=== PATIENT | female | born 2000 | race Caucasian/White ===

== ENCOUNTER 2021-10-15 22:01 | Emergency (ER) | payer OTHER, SELFPAY ==
--- OUTSIDE RECORDS SUMMARY | 2021-10-15 22:07 | XMS REPORT | Continuity of Care Document ---
:2000 Author Organization [facility] t Address [address] [place] [address] Care Team Providers Name Role Phone PCP, DOES NOT HAVE A Primary Care Physician Unavailable BREA GALE Attending Clinician Unavailable Maribel MIGUEL Attending Clinician Unavailable Maribel Miguel DO Attending Clinician Doctor Unassigned, Name Attending Clinician Unavailable Brea Gale MD Attending Clinician Dhara Guadalupe MD Attending Clinician Jaden GIVENS Attending Clinician JADEN Attending Clinician Unavailable Pob, Lab Main Attending Clinician Unavailable Eze VELIZ Attending Clinician Unavailable Ultrasound, Mfm Attending Clinician Unavailable Nayely Muller MD Attending Clinician BREA GALE Admitting Clinician Unavailable Dhara Guadalupe MD Admitting Clinician Brea Gale MD Admitting Clinician Payers Payer Name Policy Type Policy Number Effective Date Expiration Date [facility] [id number] 2019 [facility] MEDICAID 00:00:00 Problems Condition Condition Condition Status Onset Resolution Last Treating Co mments Source Name Details Category Date Date Treatment Clinician Date Liveborn Liveborn Disease Active 2019- Unive rs , of infant, of 4-06 [place] , [place] born in born in [facility] by vaginal by vaginal delivery delivery Gestationa Gestationa Disease Active 2019-0 U nivers l l 4-05 [place] of hypertensi [place] without on without 00 Me dical significan significan Br anch t t proteinuri proteinuri a in third a in third trimester trimester 40 weeks 40 weeks Disease Active 0 Unive rs gestation gestation 4-05 ity of of of 00:00: [place] 00 [facility] Excessive Excessive Disease Active Uni vers weight weight 1-02 ity of gain gain 00:00: [place] during during 00 Medical Bran ch in third in third trimester trimester Morbid Morbid Disease Active Univers obesity obesity 1-02 [place] of with body [place] body [place] mass index mass index 00 Me dical of of Branch 40.0-49.9 40.0-49.9 Excessive Excessive Disease Active Uni vers weight weight 1-02 ity of gain gain 00:00: [place] during during 00 Medical Bran ch in third in third trimester trimester 32 weeks 32 weeks Disease Active 0 Unive rs gestation gestation 1-02 ity of of of 00:00: [place] 00 [facility] Morbid Morbid Disease Active Univers obesity obesity 1-02 [place] of with body with body 00:[place] mass index mass index 00 Me dical of of Branch 40.0-49.9 40.0-49.9 High-risk High-risk Disease Active Uni vers , , 1- it y of second second 00:00: [place] trimester trimester 00 [facility] 26 weeks 26 weeks Disease Active 0 Unive rs gestation gestation 1-02 ity of of of 00:00: [place] 00 [facility] Anxiety Anxiety Problem Active Common [facility] Sinus Sinus Problem Active Common problem problem [facility] Allergic Allergic Problem Active Commo n rhinitis, rhinitis, Spir it unspecifie unspecifie - [facility] seasonalit seasonalit Jennifer kes y, y, Medical unspecifie unspecifie Ce nter d trigger d trigger , , Problem Active C ommon unspecifie unspecifie Sp makayla d d - [facility] gestationa gestationa [facility] Depression Depression Problem Active C ommon screening screening Spir [facility] Depression Depression Problem Active C ommon [facility] Seasonal Seasonal Problem Active Commo n allergies allergies Spir it - [facility] Allergies, Adverse Reactions, Alerts Allergy Allergy Status Severity Reaction(s) Onset Inactive Treating Comm ents Source Name Type Date Date Clinician Penicill Propensi Active Shortness of Univers ins ty to Breath 9-23 ity of adverse 00:00: [place] reaction 00 [facility] PENICILL Drug Active Rash Univers INS Class 9-23 ity of 00:00: [place] 00 [facility] Penicill Propensi Active Shortness of Univers ins ty to Breath 9-23 ity of adverse 00:00: [place] reaction 00 [facility] penicill Adverse Active Info Not Commo n in Reaction Available [facility] Social History Social Habit Start Date Stop Date Quantity Comments Source ASSERTION 2018-11-26 [facility] 00:00:00 [facility] Exposure to 2021-09-23 2021-10-03 Not sure [facility] SARS-CoV-2 00:00:00 14:52:00 [facility] (event) [place] Alcohol intake 2021-10-03 2021-10-03 Ex-drinker [facility] 00:00:00 00:00:00 (finding) [facility] History SDOH 2019-08-22 2019-08-22 5 University o f Financial 00:00:00 00:00:00 [facility] Education 2019-08-21 2019-08-21 15 [facility] 00:00:00 00:00:00 [facility] Tobacco use and 2019-02-07 2019-02-07 Never used Universit y of exposure 00:00:00 00:00:00 [facility] Sex Assigned At 2000 2000 Universit y of 00:00:00 00:00:00 [facility] Smoking Status Start Date Stop Date Source Never smoker [facility] Medications Ordered Filled Start Stop Current Ordering Indication Dosage Frequency Signature Comments Components Source Medication Medication Date Date Medication? Clinician (SIG) Name Name ketorolac No 30mg 30 mg, Unive rs (TORADOL) 10-03 Slow IV ity of injection 21:15: 20:27 Push, [place] 30 mg 00 :00 ONCE, 1 Medical dose, On Branch Nakia 10/03/21 at 1615, LISSETH medroxyPROG 2019- No 150mg 150 mg, U nivers ESTERone 4-07 04- Intramuscu ity of (DEPO-PROVE 15:30: 16:09 lar, ONCE, [place] RA) 00 :00 1 dose, Medical injection 08/23/19 Bran ch 150 mg at 1030, Routine 2020- No Take by [facility] ers vit 08-22 04-07 mouth. ity of calc,iron,f 13:04: 00:00 [place] olic 37 :00 Medical ( Branch VITAMIN ORAL) 2019-0 Yes [id number] 1{tbl} Take 1 Univers vitamin 4-07 102 tablet by ity of w/FA tablet 00:00: mouth [place] 00 daily. Medical Branch docusate Yes [id number] 240mg Take 1 Univers calcium 240 4-07 102 capsule by it y of mg capsule 00:00: mouth [place] 00 daily as Medical needed for Branch Constipati on. ferrous 2020-0 Yes [id number] 325mg Take 1 Univers sulfate 325 4-07 102 tablet by ity of mg (65 mg 00:00: mouth 2 [place] iron) 00 (two) Medical tablet times Branch daily. ibuprofen Yes [id number] 600mg Take 1 Univers 600 mg 4-07 102 tablet by ity of tablet 00:00: mouth [place] 00 every 6 Medical (six) Branch hours as needed (Pain). Take with food or milk. Yes [id number] 1{tbl} Take 1 Univers vitamin 4-07 102 tablet by ity of w/FA tablet 00:00: mouth [place] 00 daily. Medical Branch docusate 0 Yes [id number] 240mg Take 1 Univers calcium 240 4-07 102 capsule by it y of mg capsule 00:00: mouth once [place] 00 daily as Medical needed for Branch Constipati on. ferrous 2020-0 Yes [id number] 325mg Take 1 Univers sulfate 325 4-07 102 tablet by ity of mg (65 mg 00:00: mouth 2 [place] iron) 00 (two) Medical tablet times Branch daily. ibuprofen 2019-0 Yes [id number] 600mg Take 1 Univers 600 mg 4-07 102 tablet by ity of tablet 00:00: mouth [place] 00 every 6 Medical (six) Branch hours as needed (Pain). Take with food or milk. 2019-0 Yes [id number] 1{tbl} Take 1 Univers vitamin 4-07 102 tablet by ity of w/FA tablet 00:00: mouth [place] 00 daily. Medical Branch docusate 2020-0 Yes [id number] 240mg Take 1 Univers calcium 240 4-07 102 capsule by it y of mg capsule 00:00: mouth once [place] 00 daily as Medical needed for Branch Constipati on. ferrous 2020-0 Yes [id number] 325mg Take 1 Univers sulfate 325 4-07 102 tablet by ity of mg (65 mg 00:00: mouth 2 [place] iron) 00 (two) Medical tablet times Branch daily. ibuprofen 2020-0 Yes [id number] 600mg Take 1 Univers 600 mg 4-07 102 tablet by ity of tablet 00:00: mouth [place] 00 every 6 Medical (six) Branch hours as needed (Pain). Take with food or milk. 2020-0 Yes [id number] 1{tbl} Take 1 Univers vitamin 4-07 102 tablet by ity of w/FA tablet 00:00: mouth [place] 00 daily. Medical Branch docusate 2020-0 Yes [id number] 240mg Take 1 Univers calcium 240 4-07 102 capsule by it y of mg capsule 00:00: mouth once [place] 00 daily as Medical needed for Branch Constipati on. ferrous 2020-0 Yes [id number] 325mg Take 1 Univers sulfate 325 4-07 102 tablet by ity of mg (65 mg 00:00: mouth 2 [place] iron) 00 (two) Medical tablet times Branch daily. ibuprofen 2020-0 Yes [id number] 600mg Take 1 Univers 600 mg 4-07 102 tablet by ity of tablet 00:00: mouth [place] 00 every 6 Medical (six) Branch hours as needed (Pain). Take with food or milk. 2020-0 Yes [id number] 1{tbl} Take 1 Univers vitamin 4-07 102 tablet by ity of w/FA tablet 00:00: mouth [place] 00 daily. Medical Branch docusate 2020-0 Yes [id number] 240mg Take 1 Univers calcium 240 4-07 102 capsule by it y of mg capsule 00:00: mouth once [place] 00 daily as Medical needed for Branch Constipati on. ferrous 2020-0 Yes [id number] 325mg Take 1 Univers sulfate 325 4-07 102 tablet by ity of mg (65 mg 00:00: mouth 2 [place] iron) 00 (two) Medical tablet times Branch daily. ibuprofen 2020-0 Yes [id number] 600mg Take 1 Univers 600 mg 4-07 102 tablet by ity of tablet 00:00: mouth [place] 00 every 6 Medical (six) Branch hours as needed (Pain). Take with food or milk. 2020-0 Yes [id number] 1{tbl} Take 1 Univers vitamin 4-07 102 tablet by ity of w/FA tablet 00:00: mouth [place] 00 daily. Medical Branch docusate 2020-0 Yes [id number] 240mg Take 1 Univers calcium 240 4-07 102 capsule by it y of mg capsule 00:00: mouth once [place] 00 daily as Medical needed for Branch Constipati on. ferrous 2020-0 Yes [id number] 325mg Take 1 Univers sulfate 325 4-07 102 tablet by ity of mg (65 mg 00:00: mouth 2 [place] iron) 00 (two) Medical tablet times Branch daily. ibuprofen 2020-0 Yes [id number] 600mg Take 1 Univers 600 mg 4-07 102 tablet by ity of tablet 00:00: mouth [place] 00 every 6 Medical (six) Branch hours as needed (Pain). Take with food or milk. 2020-0 Yes [id number] 1{tbl} Take 1 Univers vitamin 4-07 102 tablet by ity of w/FA tablet 00:00: mouth [place] 00 daily. Medical Branch docusate 2020-0 Yes [id number] 240mg Take 1 Univers calcium 240 4-07 102 capsule by it y of mg capsule 00:00: mouth once [place] 00 daily as Medical needed for Branch Constipati on. ferrous 2020-0 Yes [id number] 325mg Take 1 Univers sulfate 325 4-07 102 tablet by ity of mg (65 mg 00:00: mouth 2 [place] iron) 00 (two) Medical tablet times Branch daily. ibuprofen 2020-0 Yes [id number] 600mg Take 1 Univers 600 mg 4-07 102 tablet by ity of tablet 00:00: mouth [place] 00 every 6 Medical (six) Branch hours as needed (Pain). Take with food or milk. 2020-0 Yes [id number] 1{tbl} Take 1 Univers vitamin 4-07 102 tablet by ity of w/FA tablet 00:00: mouth [place] 00 daily. Medical Branch docusate 2020-0 Yes [id number] 240mg Take 1 Univers calcium 240 4-07 102 capsule by it y of mg capsule 00:00: mouth once [place] 00 daily as Medical needed for Branch Constipati on. ferrous 2020-0 Yes [id number] 325mg Take 1 Univers sulfate 325 4-07 102 tablet by ity of mg (65 mg 00:00: mouth 2 [place] iron) 00 (two) Medical tablet times Branch daily. ibuprofen 2020-0 Yes [id number] 600mg Take 1 Univers 600 mg 4-07 102 tablet by ity of tablet 00:00: mouth [place] 00 every 6 Medical (six) Branch hours as needed (Pain). Take with food or milk. 2020-0 Yes [id number] 1{tbl} Take 1 Univers vitamin 4-07 102 tablet by ity of w/FA tablet 00:00: mouth [place] 00 daily. Medical Branch docusate 2020-0 Yes [id number] 240mg Take 1 Univers calcium 240 4-07 102 capsule by it y of mg capsule 00:00: mouth once [place] 00 daily as Medical needed for Branch Constipati on. ferrous 2020-0 Yes [id number] 325mg Take 1 Univers sulfate 325 4-07 102 tablet by ity of mg (65 mg 00:00: mouth 2 [place] iron) 00 (two) Medical tablet times Branch daily. ibuprofen 2020-0 Yes [id number] 600mg Take 1 Univers 600 mg 4-07 102 tablet by ity of tablet 00:00: mouth [place] 00 every 6 Medical (six) Branch hours as needed (Pain). Take with food or milk. 2020-0 Yes [id number] 1{tbl} Take 1 Univers vitamin 4-07 102 tablet by ity of w/FA tablet 00:00: mouth [place] 00 daily. Medical Branch docusate 2020-0 Yes [id number] 240mg Take 1 Univers calcium 240 4-07 102 capsule by it y of mg capsule 00:00: mouth once [place] 00 daily as Medical needed for Branch Constipati on. ferrous 2020-0 Yes [id number] 325mg Take 1 Univers sulfate 325 4-07 102 tablet by ity of mg (65 mg 00:00: mouth 2 [place] iron) 00 (two) Medical tablet times Branch daily. ibuprofen 2020-0 Yes [id number] 600mg Take 1 Univers 600 mg 4-07 102 tablet by ity of tablet 00:00: mouth [place] 00 every 6 Medical (six) Branch hours as needed (Pain). Take with food or milk. 2020-0 Yes [id number] 1{tbl} Take 1 Univers vitamin 4-07 102 tablet by ity of w/FA tablet 00:00: mouth [place] 00 daily. Medical Branch docusate 2020-0 Yes [id number] 240mg Take 1 Univers calcium 240 4-07 102 capsule by it y of mg capsule 00:00: mouth once [place] 00 daily as Medical needed for Branch Constipati on. ferrous 2020-0 Yes [id number] 325mg Take 1 Univers sulfate 325 4-07 102 tablet by ity of mg (65 mg 00:00: mouth 2 [place] iron) 00 (two) Medical tablet times Branch daily. ibuprofen 2020-0 Yes [id number] 600mg Take 1 Univers 600 mg 4-07 102 tablet by ity of tablet 00:00: mouth [place] 00 every 6 Medical (six) Branch hours as needed (Pain). Take with food or milk. rho(D) 2019-0 Yes 300ug 300 mcg, Univer s immune 4-06 Intramuscu ity of globulin 16:38: lar, ONCE, [place] as (RHOGAM) 56 For 1 Medical syringe 300 dose, Branch mcg Conditiona l, Routine HYDROcodone 2019-0 Yes 1{tbl} 1 tablet, Univers -acetaminop 4-06 Oral, ity of hen (NORCO 16:38: Q6HPRN, [place] 5) 5-325 mg 52 Starting Medi meredith tablet 1 Mon 08/22/19 Branc h tablet at 1138, Until Discontinu ed, Routine, Pain (scale 7-10) ibuprofen 2020-0 Yes 600mg 600 mg, Univ ers (IBU) 4-06 Oral, ity of tablet 600 16:38: Q6HPRN, [place] mg 52 Starting Medical 08/22/19 Branch at 1138, Until Discontinu ed, Routine, Pain (scale 4-6) diphenhydrA 2019-0 Yes 25mg 25 mg, Univ ers MINE 4-06 Oral, ity of (BENADRYL) 16:38: Q6HPRN, [place] tablet 25 52 Starting Medica l mg 08/22/19 Branch at 1138, Until Discontinu ed, Routine, Sleep, Itching ondansetron 2019-0 Yes 4mg 4 mg, Slow Univers (ZOFRAN 4- IV Push, ity of (PF)) 16:38: Q8HPRN, [place] injection 4 52 Starting Medi meredith mg 08/22/19 Branch at 1138, Until Discontinu ed, Routine, Nausea and Vomiting (N/V) simethicone 2020-0 Yes 160mg 160 mg, Un matt (GAS RELIEF -06 Oral, ity of (SIMETHICON 16:38: PC+HSPRN, [place] E)) 52 Starting Medical chewable 08/22/19 Branc h tablet 160 at 1138, mg Until Discontinu ed, Routine, Gas docusate 2020-0 Yes 240mg 240 mg, Unive rs calcium 4-06 Oral, ity of (SURFAK) 16:38: QDAILYPRN, [place] capsule 240 52 Starting Medi meredith mg 08/22/19 Branch at 1138, Until Discontinu ed, Routine, Constipati on magnesium 2020-0 Yes 30mL 30 mL, Univer s hydroxide 08-21 Oral, ity of (MILK OF 16:38: QDAILYPRN, [place] MAGNESIA) 52 Starting Medica l 400 mg/5 mL 08/22/19 Br anch suspension at 1138, 30 mL Until Discontinu ed, Routine, Constipati on benzocaine- 2020-0 Yes Topical, Un matt menthol 06 PRN, ity of (DERMOPLAST 16:38: Starting [place] ) 20-0.5 % 52 Mon 08/22/19 Med ical topical at 1138, Branch spray Until Discontinu ed, Routine, Perineum discomfort acetaminoph 2020-0 Yes 650mg 650 mg, Un matt en 4-06 Oral, ity of (TYLENOL) 16:38: Q6HPRN, [place] tablet 650 51 Starting Medic al mg 08/22/19 Branch at 1138, Until Discontinu ed, Routine, Pain (scale 1-3) LR 1000 mL 2020-0 2020- No 2mU/min 2-40 Uni vers + oxytocin 08-21 04-06 ishmael-unit it y of 20 units IV 05:00: 16:38 s/min [place] Solution 00 :57 (6-120 Medical mL/hr), IV Branch Infusion, TITRATE, Oxytocin Induction / Augmentati on of Labor, Starting Thu08/22/19 at 0000
In fuse IV through a controlled infusion pump at a proximal port on the peripheral IV line.&nbsp ; Sta rt at 2 ishmael-unit s/min (at midnight) and increase by 2 ishmael-unit s/min every 20 minutes according to oxytocin policy 7.11.52 and leave at 4 mu/min until 0400 hours and restart titration as per protocol. Going over 20 ishmael-unit s/min requires faculty approval.& nbsp;&nbsp ;Max 40 ishmael-unit s/min.
lactated 2019-0 2020- No 1000mL at 125 Univ ers ringers IV 08-21-06 mL/hr, ity of infusion 00:00: 16:38 1,000 mL, [place] 1,000 mL 00 :57 IV Medical Infusion, Branch CONTINUOUS , Starting [place] 08/21/19 at 1900, Until Thu08/22/19 at 1138, Routine zolpidem 2019-2019- No 10mg 10 mg, Univer s (AMBIEN) 08-20- Oral, ity of tablet 10 23:47: 01:04 QHSPRN, 1 [place] mg 12 :00 dose, Medical Starting [facility] 08/21/19 at 1847, Until Thu08/21/19 at 2004, Routine, Insomnia FENTanyl PF 2019-2019- No 100ug 100 mcg, Univers (SUBLIMAZE 08-20-06 Slow IV ity o f (PF)) 23:41: 16:38 Push, [place] injection 29 :57 Q1HPRN, Medical 100 mcg Starting [facility] 08/21/19 at 1841, Until Thu08/22/19 at 1138, Routine, Pain (scale 4-6), Pain (scale 7-10) lactated 2019-0 2020- No 500mL at 999 Unive rs ringers IV 08-20-06 mL/hr, 500 it y of infusion 23:33: 16:38 mL, IV [place] 500 mL 39 :57 Infusion, Medical PRN - SEE Branch INSTRUCTIO NS, Starting [place] 08/21/19 at 1833, Until Thu08/22/19 at 1138, Routine acetaminoph 2020- No 650mg 650 mg, U nivers en 4-05 04-05 Oral, ONCE ity of (TYLENOL) 20:45: 19:44 NOW, 1 [place] tablet 650 00 :00 dose, Sun Medi meredith mg 08/21/19 at Branch 1545, Routine acetaminoph 2020-0 2020- No 650mg 650 mg, U nivers en 4-05 04-05 Oral, ONCE ity of (TYLENOL) 14:09: 14:23 NOW, 1 [place] tablet 650 00 :00 dose, Sun Medi meredith mg 08/21/19 at Branch 0930, Routine 2020-0 Yes Take by Unive rs vit 3-17 mouth. ity of calc,iron,f 09:12: [address] ( Branch VITAMIN ORAL) 2020-0 Yes Take by Unive rs vit 3-17 mouth. ity of calc,iron,f 09:12: [address] ( Branch VITAMIN ORAL) 2020-0 Yes Take by Unive rs vit 3-17 mouth. ity of calc,iron,f 09:12: [address] ( Branch VITAMIN ORAL) 2020-0 Yes Take by Unive rs vit 3-17 mouth. ity of calc,iron,f 09:12: [address] ( Branch VITAMIN ORAL) 2020-0 Yes Take by Unive rs vit 3-17 mouth. ity of calc,iron,f 09:12: [address] ( Branch VITAMIN ORAL) 2020-0 Yes Take by Unive rs vit 3-17 mouth. ity of calc,iron,f 09:12: [address] ( Branch VITAMIN ORAL) 2020-0 Yes Take by Unive rs vit 3-17 mouth. ity of calc,iron,f 09:12: [address] ( Branch VITAMIN ORAL) 2020-0 Yes Take by Unive rs vit 3-17 mouth. ity of calc,iron,f 09:12: [address] ( Branch VITAMIN ORAL) 2020-0 Yes Take by Unive rs vit 3-17 mouth. ity of calc,iron,f 09:12: [address] ( Branch VITAMIN ORAL) 2020-0 Yes Take by Unive rs vit 3-17 mouth. ity of calc,iron,f 09:12: [place] [id number] Medical ( Branch VITAMIN ORAL) 2020-0 Yes Take by Unive rs vit 3-17 mouth. ity of calc,iron,f 09:12: [place] [id number] Medical ( Branch VITAMIN ORAL) 2020-0 Yes Take by Unive rs vit 3-17 mouth. ity of calc,iron,f 09:12: [place] [id number] Medical ( Branch VITAMIN ORAL) 2019- Yes Take by Unive rs vit 2-30 mouth. ity of calc,iron,f 04:20: [place] [id number] Medical ( Branch VITAMIN ORAL) 2019- Yes Take by Unive rs vit 2-30 mouth. ity of calc,iron,f 04:20: [place] [id number] Medical ( Branch VITAMIN ORAL) 2019- Yes Take by Unive rs vit 2-30 mouth. ity of calc,iron,f 04:20: [place] [id number] Medical ( Branch VITAMIN ORAL) 2019- Yes Take by Unive rs vit 2-30 mouth. ity of calc,iron,f 04:20: [place] [id number] Medical ( Branch VITAMIN ORAL) 2019- Yes Take by Unive rs vit 2-30 mouth. ity of calc,iron,f 04:20: [place] [id number] Medical ( Branch VITAMIN ORAL) 2019- Yes Take by Unive rs vit 2-30 mouth. ity of calc,iron,f 04:20: [place] [id number] Medical ( Branch VITAMIN ORAL) 2019- Yes Take by Unive rs vit 2-30 mouth. ity of calc,iron,f 04:20: [place] [id number] Medical ( Branch VITAMIN ORAL) 2019- Yes Take by Unive rs vit 2-30 mouth. ity of calc,iron,f 04:20: [place] [id number] Medical ( Branch VITAMIN ORAL) 2019- Yes Take by Unive rs vit 2-30 mouth. ity of calc,iron,f 04:20: [place] [id number] Medical ( Branch VITAMIN ORAL) Immunizations Ordered Filled Immunization Date Status Comments [facility] e Immunization Name Name TDAP (ADACEL) 2019-06-29 Completed University of VACCINE 00:00:00 [facility] TDAP (ADACEL) 2019-06-29 Completed University of VACCINE 00:00:00 [place] [facility] TDAP (ADACEL) 2019-06-29 Completed University of VACCINE 00:00:00 [place] [facility] TDAP (ADACEL) 2019-06-29 Completed University of VACCINE 00:00:00 [place] [facility] TDAP (ADACEL) 2019-06-29 Completed University of VACCINE 00:00:00 [place] [facility] TDAP (ADACEL) 2019-06-29 Completed University of VACCINE 00:00:00 [place] [facility] TDAP (ADACEL) 2019-06-29 Completed University of VACCINE 00:00:00 [place] [facility] TDAP (ADACEL) 2019-06-29 Completed University of VACCINE 00:00:00 [place] [facility] TDAP (ADACEL) 2019-06-29 Completed University of VACCINE 00:00:00 [place] [facility] TDAP (ADACEL) 2019-06-29 Completed University of VACCINE 00:00:00 [facility] Branch TDAP (ADACEL) 2019-06-29 Completed University of VACCINE 00:00:00 [facility] Branch TDAP (ADACEL) 2019-06-29 Completed University of VACCINE 00:00:00 [facility] Branch TDAP (ADACEL) 2019-06-29 Completed University of VACCINE 00:00:00 [facility] Branch TDAP (ADACEL) 2019-06-29 Completed University of VACCINE 00:00:00 [facility] Branch TDAP (ADACEL) 2019-06-29 Completed University of VACCINE 00:00:00 [place] [facility] TDAP (ADACEL) 2019-06-29 Completed University of VACCINE 00:00:00 [facility] Branch TDAP (ADACEL) 2019-06-29 Completed University of VACCINE 00:00:00 [facility] Branch TDAP (ADACEL) 2019-06-29 Completed University of VACCINE 00:00:00 [place] [facility] TDAP (ADACEL) 2019-06-29 Completed University of VACCINE 00:00:00 [place] [facility] TDAP (ADACEL) 2019-06-29 Completed University of VACCINE 00:00:00 [place] [facility] TDAP (ADACEL) 2019-06-29 Completed University of VACCINE 00:00:00 [place] [facility] TDAP (ADACEL) 2019-06-29 Completed University of VACCINE 00:00:00 [place] [facility] TDAP (ADACEL) 2019-06-29 Completed University of VACCINE 00:00:00 [place] [facility] TDAP (ADACEL) 2019-06-29 Completed University of VACCINE 00:00:00 [place] [facility] TDAP (ADACEL) 2019-06-29 Completed University of VACCINE 00:00:00 [facility] TDAP (ADACEL) 2019-06-29 Completed University of VACCINE 00:00:00 [facility] TDAP (ADACEL) 2019-06-29 Completed University of VACCINE 00:00:00 [facility] Influenza Virus 2019-03-23 Completed Universit y of Vaccine Quad .5 mL 00:00:00 [place] Medical IM 6+ MO Branch Influenza Virus 2019-03-23 Completed Universit y of Vaccine [place] .5 mL 00:00:00 [place] [facility] IM 6+ MO Branch Influenza Virus 2019-03-23 Completed Universit y of Vaccine [place] .5 mL 00:00:00 [place] [facility] IM 6+ MO Branch Influenza Virus 2019-03-23 Completed Universit y of Vaccine [place] .5 mL 00:00:00 [place] [facility] IM 6+ MO Branch Influenza Virus 2019-03-23 Completed Universit y of Vaccine [place] .5 mL 00:00:00 [place] [facility] IM 6+ MO Branch Influenza Virus 2019-03-23 Completed Universit y of Vaccine [place] .5 mL 00:00:00 [place] Medical IM 6+ MO Branch Influenza Virus 2019-03-23 Completed Universit y of Vaccine [place] .5 mL 00:00:00 [place] [facility] IM 6+ MO Branch Influenza Virus 2019-03-23 Completed Universit y of Vaccine [place] .5 mL 00:00:00 [place] Medical IM 6+ MO Branch Influenza Virus 2019-03-23 Completed Universit y of Vaccine [place] .5 mL 00:00:00 [place] Medical IM 6+ MO Branch Influenza Virus 2019-03-23 Completed Universit y of Vaccine [place] .5 mL 00:00:00 [place] [facility] IM 6+ MO Branch Influenza Virus 2019-03-23 Completed Universit y of Vaccine [place] .5 mL 00:00:00 [place] [facility] IM 6+ MO Branch Influenza Virus 2019-03-23 Completed Universit y of Vaccine [place] .5 mL 00:00:00 [place] Medical IM 6+ MO Branch Influenza Virus 2019-03-23 Completed Universit y of Vaccine [place] .5 mL 00:00:00 [facility] Influenza Virus 2019-03-23 Completed Universit y of Vaccine [facility] .5 mL 00:00:00 [facility] Influenza Virus 2019-03-23 Completed [facility]it y of [facility] .5 mL 00:00:00 [facility] Influenza Virus 2019-03-23 Completed Universit y of [facility] .5 mL 00:00:00 [facility] Influenza Virus 2019-03-23 Completed Universit y of [facility] .5 mL 00:00:00 [facility] Influenza Virus 2019-03-23 Completed Universit y of [facility] .5 mL 00:00:00 [facility] Influenza Virus 2019-03-23 Completed Universit y of [facility] .5 mL 00:00:00 [facility] Influenza Virus 2019-03-23 Completed Universit y of [facility] .5 mL 00:00:00 [facility] Influenza Virus 2019-03-23 Completed Universit y of [facility] .5 mL 00:00:00 [facility] Influenza Virus 2019-03-23 Completed Universit y of [facility] .5 mL 00:00:00 [facility] Influenza Virus 2019-03-23 Completed Universit y of [facility] .5 mL 00:00:00 [facility] Influenza Virus 2019-03-23 Completed Universit y of [facility] .5 mL 00:00:00 [facility] Influenza Virus 2019-03-23 Completed Universit y of [facility] .5 mL 00:00:00 [facility] Influenza Virus 2019-03-23 Completed Universit y of [facility] .5 mL 00:00:00 [facility] Influenza Virus 2019-03-23 Completed [facility]it y of [facility] .5 mL 00:00:00 [facility] Influenza Virus 2019-03-23 Completed Universit y of [facility] .5 mL 00:00:00 [facility] Influenza Virus 2019-03-23 Completed [facility]it y of [facility] .5 mL 00:00:00 [facility] Influenza Virus 2019-03-23 Completed Universit y of [facility] .5 mL 00:00:00 [facility] Influenza Virus 2019-03-23 Completed Universit y of [facility] .5 mL 00:00:00 [facility] Influenza Virus 2019-03-23 Completed Universit y of [facility] .5 mL 00:00:00 [facility] Vital Signs Vital Name Observation Time Observation Value Comments Source Systolic blood 2021-10-03 21:41:28 125 mm[Hg] Univer sity of pressure [facility] Diastolic blood 2021-10-03 21:41:28 78 mm[Hg] Unive rsity of pressure [facility] Heart rate 2021-10-03 21:41:28 75 /min Universi ty of [facility] Respiratory rate 2021-10-03 21:41:28 16 /min Univ ersity of [facility] Oxygen saturation in 2021-10-03 21:41:28 98 /min University of Arterial blood by [facility] meredith Pulse oximetry Branch Body temperature 2021-10-03 19:55:00 37.33 Shannon Univ ersity [facility] [place] Body weight 2021-10-03 19:55:00 90.719 kg Universi ty [facility] [place] Systolic blood 2019-08-23 14:35:00 124 mm[Hg] Univer sity of pressure [facility] Diastolic blood 2019-08-23 14:35:00 79 mm[Hg] Unive rsity of pressure [facility] Heart rate 2019-08-23 14:35:00 88 /min [facility] Body temperature 2019-08-23 14:35:00 36.72 Shannon Univ [facility] Respiratory rate 2019-08-23 14:35:00 18 /min Univ ersity [facility] Oxygen saturation in 2019-08-23 14:35:00 100 /min University of Arterial blood by [facility] Pulse oximetry Branch Body weight 2019-08-21 23:45:00 123.378 kg [facility] BMI 2019-08-21 23:45:00 46.69 kg/m2 [facility] Body height 2019-08-21 14:10:00 162.6 cm [facility] Systolic blood 2019-08-08 20:49:00 118 mm[Hg] Univer sity of pressure [facility] Diastolic blood 2019-08-08 20:49:00 67 mm[Hg] Unive rsity of pressure [facility] Heart rate 2019-08-08 20:49:00 91 /min [facility] Body temperature 2019-08-08 20:49:00 36.5 Shannon Univ ersity [facility] Respiratory rate 2019-08-08 20:49:00 18 /min Univ ers[facility] Body height 2019-08-08 20:49:00 162.6 cm [facility] Body weight 2019-08-08 20:49:00 122.471 kg [facility] BMI 2019-08-08 20:49:00 46.35 kg/m2 [facility] Systolic blood 2019 16:47:00 102 mm[Hg] Univer sity of pressure [facility] Diastolic blood 2019 16:47:00 57 mm[Hg] Unive rsity of pressure [facility] Heart rate 2019 16:47:00 109 /min [facility] Body temperature 2019 16:47:00 36.67 Shannon Univ [facility] Respiratory rate 2019 16:47:00 18 /min Univ [facility] Body height 2019 16:47:00 162.6 cm [facility] Body weight 2019 16:47:00 121.564 kg [facility] BMI 2019 16:47:00 46.00 kg/m2 [facility] Systolic blood 2019-07-27 20:46:00 131 mm[Hg] Univer sity of pressure [facility] Diastolic blood 2019-07-27 20:46:00 71 mm[Hg] Unive rsity of pressure [facility] Heart rate 2019-07-27 20:46:00 92 /min [facility] Body temperature 2019-07-27 20:46:00 36.67 Shannon Univ [facility] Respiratory rate 2019-07-27 20:46:00 18 /min Univ ers[facility] Body height 2019-07-27 20:46:00 162.6 cm [facility] Body weight 2019-07-27 20:46:00 119.296 kg [facility] BMI 2019-07-27 20:46:00 45.14 kg/m2 [facility] Oxygen saturation in 2019-08-02 08:05:00 99 /min University of Arterial blood by [facility] Pulse oximetry Branch Systolic blood 2019-08-02 08:05:00 139 mm[Hg] Univer sity of pressure [facility] Diastolic blood 2019-08-02 08:05:00 77 mm[Hg] Unive rsity of pressure [facility] Heart rate 2019-08-02 08:05:00 86 /min Universi ty of [facility] Body temperature 2019-08-02 08:05:00 36.78 Shannon Univ ersity of [facility] Respiratory rate 2019-08-02 08:05:00 18 /min Univ ersity of [facility] Body height 2019-08-02 08:05:00 162.6 cm Universi ty of [facility] Body weight 2019-08-02 08:05:00 121.745 kg Universi ty of [facility] BMI 2019-08-02 08:05:00 46.07 kg/m2 Universi ty of [facility] Systolic blood 2019-07-13 17:26:00 110 mm[Hg] Univer sity of pressure [facility] Diastolic blood 2019-07-13 17:26:00 58 mm[Hg] Unive rsity of pressure [facility] Heart rate 2019-07-13 17:26:00 78 /min Universi ty of [facility] Body temperature 2019-07-13 17:26:00 36.5 Shannon Univ ersity of [facility] Respiratory rate 2019-07-13 17:26:00 18 /min Univ ersity of [facility] Body height 2019-07-13 17:26:00 162.6 cm Universi ty of [facility] Body weight 2019-07-13 17:26:00 117.935 kg Universi ty of [facility] BMI 2019-07-13 17:26:00 44.63 kg/m2 Universi ty of [facility] Systolic blood 2019-06-29 21:20:00 114 mm[Hg] Univer sity of pressure [facility] Diastolic blood 2019-06-29 21:20:00 72 mm[Hg] Unive rsity of pressure [facility] Heart rate 2019-06-29 21:20:00 76 /min Universi ty of [facility] Body temperature 2019-06-29 21:20:00 36.61 Shannon Univ ersity of [facility] Respiratory rate 2019-06-29 21:20:00 18 /min [facility] acute hospital Body height 2019-06-29 21:20:00 162.6 cm Universi ty of [facility] Body weight 2019-06-29 21:20:00 114.76 kg Universi ty of [facility] BMI 2019-06-29 21:20:00 43.43 kg/m2 Universi ty [facility] Systolic blood 2019-06-13 19:41:00 120 mm[Hg] Univer sity of pressure [facility] Diastolic blood 2019-06-13 19:41:00 76 mm[Hg] [facility] Heart rate 2019-06-13 19:41:00 94 /min Universi ty [facility] Body temperature 2019-06-13 19:41:00 36.89 Shannon [facility] Respiratory rate 2019-06-13 19:41:00 18 /min [facility] acute hospital Body height 2019-06-13 19:41:00 162.6 cm Universi ty [facility] Body weight 2019-06-13 19:41:00 113.399 kg Universi ty [facility] BMI 2019-06-13 19:41:00 42.91 kg/m2 Universi ty [facility] Procedures Procedure Date / Time Performing Clinician Source Performed POCT TEST 2021-10-03 20:26:00 Sarah Miguel [facility] LIPASE 2021-10-03 20:18:00 Sarah Miguel [facility] COMP. METABOLIC PANEL 2021-10-03 20:18:00 Sarah Miguel [facility] ([id number]) [facility] CBC WITH DIFF 2021-10-03 20:18:00 Sarah Miguel [facility] URINALYSIS 2021-10-03 20:18:00 Sarah Miguel [facility] CONSENT/REFUSAL FOR 2021-10-03 19:52:00 [facility] NOTICE OF PRIVACY 2021-10-03 19:51:43 Doctor Unassigned, No Univ [facility] PRACTICES Name [facility] CBC WITH DIFFERENTIAL 2019-08-23 06:41:00 Renu Gale [facility] CORONAVIRUS COVID-19 2019-08-22 15:24:00 Renu Gale [facility] TESTING [facility] VENOUS CORD GAS 2019-08-22 14:39:00 Renu Gale [facility] LACTATE DEHYDROGENASE 2019-08-21 16:18:00 Adum, Yamilet Jules [facility] URIC ACID 2019-08-21 16:18:00 Adum, Yamilet Jules [facility] COMP. METABOLIC PANEL 2019-08-21 16:18:00 Adum, Yamilet Jules [facility] ([id number]) [facility] CBC WITH DIFFERENTIAL 2019-08-21 16:18:00 Adum, Yamilet Jules [facility] HEPATITIS B SURFACE 2019-08-21 16:18:00 Adum, Yamilet Jules [facility] ANTIGEN [facility] ADC OR LORIN ONLY - 2019-08-21 16:18:00 Adum, Yamilet Jules [facility] RPR [facility] PROTEIN CREAT RATIO 2019-08-21 16:18:00 Adum, Yamilet Jules [facility] URINE RANDOM [facility] HIV 1/2 AG-AB WITH 2019-08-21 16:18:00 Adum, Yamilet Jules [facility] REFLEX [facility] HB ABO GROUPING 2019-08-21 16:15:00 Adum, Yamilet Jules [facility] RHO (D) IMMUNE GLOBULIN 2019-08-21 16:15:00 Renu Gale [facility] ADC ONLY - FERN TEST 2019-08-21 13:15:00 Adum, Yamilet Jules [facility] HOSPITAL ADMISSION 2019-08-21 05:01:00 Doctor [facility]igned, No [facility] 2019-08-08 21:34:29 Doctor Unassigned, No [facility] Name [facility] POCT URINALYSIS W/O 2019-08-08 00:00:00 Jaden Dunia [facility] SPECIFIC GRAVITY Medical Branch POCT URINALYSIS W/O 2019 00:00:00 Dunia Sharma [facility] SPECIFIC GRAVITY [facility] Branch >14 WEEKS US 2019-08-02 18:08:[address] [facility] ASSIGNMENT OF BENEFITS 2019-08-02 07:49:05 Doctor Unassigned, No [facility] CONSENT/REFUSAL FOR 2019-08-02 07:48:24 Doctor Unassigned, No [facility] L&D VISIT 2019-08-02 05:01:00 Doctor Unassigned, No [facility] (NON-DELIVERED) [facility] GROUP B STREPTOCOCCUS BY 2019-07-27 21:18:00 Renu Gale [facility] PCR [facility] GC & CHLAMYDIA AMPLIFIED 2019-07-27 21:17:00 Renu Gale [facility] ASSAY [facility] DSU PRE-OP 2019-07-27 05:01:00 Doctor Unassigned, No [facility] POCT URINALYSIS W/O 2019-07-27 00:00:00 Renu Gale [facility] POCT URINALYSIS W/O 2019-07-13 00:00:00 Jaden Dunia [facility] TDAP (ADACEL) 2019-06-29 21:23:09 Renu Gale [place] [facility] [place] IMMUNIZATION [facility] DME/SUPPLY JUSTIFICATION 2019-06-14 06:01:00 Doctor Unassigned, No [facility] POCT URINALYSIS W/O 2019-06-13 00:00:00 [facility] Start End Encounter Admission Attending Care Care Encounter Source Date/Time Date/Time Type Type Clinicians Facility Department ID 2021-03-14 Outpatient P [facility] [id number] Univers 14:41:23 [facility] 2021-03-14 Outpatient P [facility] [id number] Univers 14:41:20 [facility] 2021-10-21 2021-10-21 Outpatient RENU GALE [facility] [id number] Univers 16:15:00 16:15:00 [id number] [facility] 2021-10-03 2021-10-03 Emergency X LAMONT [facility] ERT [id number] Univers 14:57:00 17:26:00 SARAH [facility] 2021-10-03 2021-10-03 Emergency [facility] 1.2.840.114 [id number] Univers 14:57:00 17:26:00 Sarah LOBATO [id number] ity [facility] [id number] [phone] [facility] [address] [place] 2021-10-03 2021-10-03 Orders Doctor KEDAR 1.2.840.114 [id number] Univers 00:00:00 00:00:00 Only Unassigned, [place] [id number] ity of [place] [facility] [id number] Richard as [phone] [facility] 00[address] [place] 2021-09-23 2021-09-23 Outpatient Demar GALE RENU [facility] [id number] 3Q-[id number] Univers 10:30:00 10:30:00 [id number] ity [facility] 2021-09-23 2021-09-23 Outpatient Demar GALE [facility] [id number] Univers 10:30:00 10:30:00 ity [facility] 2020-06-09 2020-06-09 Telephone Shahla [facility] 1.2.840.114 [id number] Univers 00:00:00 00:00:00 Brea Lobato [id number] i ty [facility] [id number] [facility] [phone] [place] [address] 2019-11-24 2019-11-24 Outpatient Demar GALE [facility] [id number] Univers 10:45:00 10:45:00 ity [facility] 2019-11-24 2019-11-24 Outpatient Demar GALE [facility] [id number] Univers 10:45:00 10:45:00 ity of [facility] 2019-09-22 2019-09-22 Outpatient Demar GALE [facility] [id number] Univers 11:30:00 11:30:00 ity [facility] 2019-09-22 2019-09-22 Outpatient Demar GALE [facility] [id number] Univers 11:30:00 11:30:00 ity of [facility] 2019-09-12 2019-09-12 Telephone Renu Gale [facility] 1.2.840.114 [id number] Univers 00:00:00 00:00:00 Cam [place] [id number] i [id number] [place] Profess[place] [phone] [place] dical [place]al [address] [place] [address] 2019-09-05 2019-09-05 Telephone Renu Gale [facility] 1.2.840.114 [id number] Univers 00:00:00 00:00:00 Cam [place] [id number] i [place] [id number] [place] [phone] [place] dicwy [place]al [address] [place] [address] 2019-09-01 2019-09-01 Telephone Renu Gale [facility] 1.2.840.114 [id number] Univers 00:00:00 00:00:00 Cam [place] [id number] i [place] [id number] [place] [phone] [place] dical [place]al [address] [place] [address] 2019-08-30 2019-08-30 Telephone Renu Gale [facility] 1.2.840.114 [id number] Univers 00:00:00 00:00:00 Cam [place] [id number] i [place] [id number] [place] [phone] [place] dicwy [place]al [address] [place] [address] 2019-08-25 2019-08-25 Telephone Renu Gale [facility] 1.2.840.114 [id number] Univers 00:00:00 00:00:00 Cam [place] [id number] [place] [id number] [place] [phone] [place] dicwy [place]al [address] [place] [address] 2019-08-24 2019-08-24 Telephone Renu Gale [facility] 1.2.840.114 [id number] Univers 00:00:00 00:00:00 Cam [place] [id number] [place] [id number] [phone] [place] dical nal 134 [facility] 2019-08-21 2019-08-23 Hospital [facility] 1.2.840.114 [id number] Univers 08:08:00 13:40:00 Encounter Yamilet [place] [id number] it[id number] [place] [id number] [facility] [address] [place] 2019-08-21 2019-08-21 Orders Doctor KEDAR 1.2.840.114 [id number] Univers 00:00:00 00:00:00 Only Unassigned, [place] [id number] ity [place] [facility] [id number] Richard as [phone] [facility] 00[address] [place] 2019-08-17 2019-08-17 Telephone Gale Renu [facility] 1.2.840.114 [id number] Univers 00:00:00 00:00:00 Cam Luis Alfredo [id number] i [place] [id number] [place] [phone] [place] dical [place]al [address] [place] [address] 2019-08-16 2019-08-16 Telephone Tori Galeen [facility] 1.2.840.114 [id number] Univers 00:00:00 00:00:00 Cam Luis Alfredo [id number] i [place] [id number] [place] [phone] [place] dical [place]al [address] [place] [address] 2019-08-10 2019-08-10 Telephone Tori Galeen [facility] 1.2.840.114 [id number] Univers 00:00:00 00:00:00 Cam [place] [id number] [place] [id number] [place] [phone] [place] dical [place]al [address] [place] [address] 2019-08-08 2019-08-08 Routine Jaden [facility] [id number] [id number] Univers 15:42:28 15:57:28 Dunia [place]ob[place] [id number] ity of [place] [id number] [place] [phone] [place] dical nal 134 [facility] 2019-08-08 2019-08-08 Outpatient R JADEN [facility] [id number] Univers 15:30:00 15:30:00 DUNIA [id number] ity [facility] 2019-08-08 2019-08-08 Outpatient R JADEN [facility] [id number] Univers 15:30:00 15:30:00 DUNIA ity [facility] 2019-08-08 2019-08-08 Orders Doctor KEDAR 1.2.840.114 [id number] Univers 00:00:00 00:00:00 Only Unassigned, [place] [id number] ity of [place] [facility] [id number] Richard as [phone] [address] 2019 2019 Business Proposal Rep Shereen, Adc Lab Main [facility] 1.2.8 40.114 [id number] Univers 12:19:10 12:34:10 Visit Dunia Sharma [id number] [place] 4.2.7.2.[place] [phone] [place] dical [facility] 353 [facility] 2019 2019 Routine Jaden [facility] 1.2.293.126 [id number] Univers 11:39:59 12:02:04 Dunia [place] 350.1.13.10 it[place] 4.2.7.2.686 [place] [phone] [place] dical nal 134 [facility] 2019 2019 Outpatient R JADEN [facility] [id number] Univers 11:30:00 11:30:00 DUNIA [id number] ity [facility] 2019 2019 Outpatient R RUPERTOVENICERAKESH [facility] [id number] Univers 11:30:00 11:30:00 DUNIA itpam [facility] 2019-07-27 2019-08-02 Routine Renu Gale [facility] [id number] Univers 15:17:42 13:28:07 Brea [place]ob[place] [id number] ity [place] [id number] [phone] [place] dical nal 134 [facility] 2019-08-02 2019-08-02 Hospital Shahla [facility] 1.2.840.114 [id number] Univers 02:46:00 04:02:00 Encounter Brea Lobato [id number] [place] [id number] [phone] [facility] [address] [place] 2019-08-02 2019-08-02 Nurse Kary Loo 1.2.840.114 [id number] Univers 00:00:00 00:00:00 Triage [place] [id number] it y of HOSPITAL [id number] Richard as [phone] [facility] 0[address] [place] 2019-07-27 2019-07-27 Outpatient R SHAHLA [facility] [id number] Univers 15:45:00 15:45:00 [id number] ity of [facility] 2019-07-27 2019-07-27 Outpatient R SHAHLA [facility] [id number] Univers 15:45:00 15:45:00 ity of [facility] 2019-07-27 2019-07-27 Orders Doctor THACKER 1.2.840.114 [id number] Univers 00:00:00 00:00:00 Only Unassigned, [place] 350.1.13.10 ity of [place] [facility] 4.2.7.2.686 Richard as [phone] [facility] [address] [place] 2019-07-13 2019-07-13 [facility] 1.2.585.059 [id number] Univers 11:05:08 11:39:44 Dunia [place]obato 350.1.13.10 it[place] of [place] 4[place]2.7.2.[place] [phone] [place] dical nal 134 [facility] 2019-07-13 2019-07-13 Outpatient R JADEN [facility] [id number] Univers 11:00:00 11:00:00 DUNIA ity [facility] 2019-06-29 2019-06-29 Routine [facility] [id number] [id number] Univers 14:54:01 16:08:11 Brea [place]obato 350.1.13.10 ity of [place] 4.2.7.2.[place] [phone] [place] dical nal 134 [facility] 2019-06-24 2019-06-24 Business Proposal Rep Ultrasound, Adc [facility] [place] 1.2 .840.114 [id number] Univers 13:51:40 14:27:33 Visit Nayely RenzoNisha Luis Alfredo 350.1 .13.10 it[place] of [place] [id number] [phone] [place] dical nal 134 [facility] 2019-06-14 2019-06-14 Orders Doctor KEDAR 1.2.840.114 [id number] Univers 00:00:00 00:00:00 Only Unassigned, [place] 350.1.13.10 ity [address] [place] [facility] 4.2.7.2.686 Richard as [phone] [address] 2019-06-13 2019-06-13 Routine Jaden, [facility] [id number] Univers 13:32:57 14:07:00 Dunia [place]obato 350.1.13.10 ity of [place] 4.2.7.2.[place] [phone] N[place] dical nal 134 [facility] 2019-06-10 2019-06-10 Telephone GaleTorien [facility] 1.2.840.114 [id number] Univers 00:00:00 00:00:00 Brea Lobato 350.1.13.10 i ty [place] 4.[place].7.2.[place] [phone] [place] dical nal 220 [facility] 2019-01-10 2019-01-10 Outpatient [facility] [id number] Common 11:20:00 11:20:[address] [facility] Results Test Description Test Time Test Comments Results Result Comments Source COMP. METABOLIC PANEL (12589) 2021-10-03 21:10:57 Test Item Value Reference Range Interpretation Comme nts NA (test code = 6263422999) 137 mmol/L 135-145 K (test code = 9080371700) 4.3 mmol/L 3.5-5.0 CL (test code = 9301012426) 101 mmol/L 98-108 CO2 TOTAL (test code = 27 mmol/L 23-31 9218368381) AGAP (test code = 7125780778) 2-16 BUN (test code = 5315383327) 9 mg/dL 7-23 GLUCOSE (test code = 0961456495) 98 mg/dL 70-110 CREATININE (test code = 0.57 mg/dL 0.50-1.04 1859761103) TOTAL BILI (test code = 0.4 mg/dL 0.1-1.1 7538933850) CALCIUM (test code = 4232148778) 9.5 mg/dL 8.6-10.6 T PROTEIN (test code = 7.0 g/dL 6.3-8.2 1085333718) ALBUMIN (test code = 8941075129) 4.5 g/dL 3.5-5.0 ALK PHOS (test code = 9308793716) 56 U/L 34-122 ALTv (test code = 1742-6) 12 U/L 5-35 AST(SGOT) (test code = 20 U/L 13-40 5721422756) eGFR (test code = 8520179585) mL/min/1.73m2 DANAE (test code = DANAE) Association of Glomerular Filtration Rate (GFR) and Staging of Kidney Disease* + +--------- + ----+| GFR (mL/min/1.73 m2) ?| With Kidney Damage ?| ?Without Kidney Damage+ +--- + +| ?>90 ?| ?Stage one ?| ? Normal ?+ +-------- + -----+| ?60-89 ?| ?Stage two ?| ? Decreased GFR ? + +--------- + ----+| ?30-59 ?| ?Stage three ?| ? Stage three ? + +--------- + ----+| ?15-29 ?| ?Stage four ? | ? Stage four ?+ +-------- + -----+| ?<15 (or dialysis) ? ?| ?Stage five ? | ? Stage five ?+ +-------- + -----+ *Each stage assumes the associated GFR level has been in effect for at least three months. ?Stages 1 to 5, with or without kidney disease, indicate chronic kidney disease. Notes: Determination of stages one and two (with eGFR >59mL/min/1.73 m2) requires estimation of kidney damage for at least three months as defined by structural or functional abnormalities of the kidney, manifested by either:Pathological abnormalities or Markers of kidney damage (including abnormalities in the composition of the blood or urine or abnormalities in imaging tests). [facility] 21:10:17 Test Item Value Reference Range Interpretation Comments LIPASE (test code = 5140786411) 51 U/L 0-220 Lab Interpretation (test code = Normal 17313-1) [facility] WITH [id number] 20:57:17 Test Item Value Reference Range Interpretation Comments WBC (test code = See_Comment [Automated 0676-2) message] The sy stem which generated this result transmitted reference range : 4.30 - 11.10 10*3/?L. The reference range was not used to interpret this result as normal/abnormal . RBC (test code = See_Comment [Automated 295-8) message] The sy stem which generated this result transmitted reference range : 3.93 - 5.25 10*6/?L. The reference range was not used to interpret this result as normal/abnormal . HGB (test code = 11.6 g/dL 11.6-15.0 718-7) HCT (test code = 36.9 % 35.7-45.2 4544-3) MCV (test code = 80.2 fL 80.6-95.5 L 787-2) MCH (test code = 25.2 pg 25.9-32.8 L 785-6) MCHC (test code = 31.4 g/dL 31.6-35.1 L 786-4) RDW-SD (test code = 41.0 fL 39.0-49.9 67584-2) RDW-CV (test code = 14.0 % 12.0-15.5 788-0) PLT (test code = See_Comment [Automated 267-3) message] The sy stem which generated this result transmitted reference range : 166 - 358 10*3/ ?L. The reference r ainsley was not used to interpret this result as normal/abnormal . MPV (test code = 11.3 fL 9.5-12.9 35992-6) NRBC/100 WBC (test See_Comment [Automat ed code = 9822231805) message] The system which generated this result transmitted reference range : 0.0 - 10.0 /100 WBCs. The refer ence range was not u sed to interpret th is result as normal/abnormal . NRBC x10^3 (test code <0.01 See_Comment [Auto mated = 1650638184) message] The s ystem which generated this result transmitted reference range : 10*3/?L. The reference range was not used to interpret this result as normal/abnormal . GRAN MAT (NEUT) % 69.4 % (test code = 770-8) IMM GRAN % (test code 0.30 % = 4737382265) LYMPH % (test code = 20.9 % 736-9) MONO % (test code = 8.9 % 5905-5) EOS % (test code = 0.4 % 713-8) BASO % (test code = 0.1 % 706-2) GRAN MAT x10^3(ANC) 4.90 10*3/uL 1.88-7.09 (test code = 4544241090) IMM GRAN x10^3 (test <0.03 0.00-0.06 code = 4242185962) LYMPH x10^3 (test code 1.48 10*3/uL 1.32-3.29 = 731-0) MONO x10^3 (test code 0.63 10*3/uL 0.33-0.92 = 742-7) EOS x10^3 (test code = 0.03 10*3/uL 0.03-0.39 711-2) BASO x10^3 (test code <0.03 0.01-0.07 = 704-7) Lab Interpretation Abnormal (test code = 22544-0) [facility]PO[facility] [id number] 20:26:00 Test Item Value Reference Range Interpretation Comments POCT PREG (test code = 1605) negative On board controls acceptable with present C Line (test code = 3574) POCT PREG LOT # (test code = 3575) [id number] POCT PREG TEST DATE (test code = 357) Lab Interpretation (test code = Normal 10816-4) [facility] WITH [id number] 07:55:00 Test Item Value Reference Range Interpretation Comments WBC (test code = See_Comment [Automated 6690-2) message] The sy stem which generated this result transmitted reference range : 4.30 - 11.10 10*3/?L. The reference range was not used to interpret this result as normal/abnormal . RBC (test code = See_Comment L [Automated 789-8) message] The sy stem which generated this result transmitted reference range : 3.93 - 5.25 10*6/?L. The reference range was not used to interpret this result as normal/abnormal . HGB (test code = 9.4 g/dL 11.6-15 L 718-7) HCT (test code = 30.5 % 35.7-45.2 L 4544-3) MCV (test code = 85.7 fL 80.6-95.5 787-2) MCH (test code = 26.4 pg 25.9-32.8 785-6) MCHC (test code = 30.8 g/dL 31.6-35.1 L 786-4) RDW-SD (test code = 50.0 fL 39-49.9 H 66395-9) RDW-CV (test code = 16.1 % 12-15.5 H 788-0) PLT (test code = See_Comment [Automated 777-3) message] The sy stem which generated this result transmitted reference range : 166 - 358 10*3/ ?L. The reference r ainsley was not used to interpret this result as normal/abnormal . MPV (test code = 11.3 fL 9.5-12.9 94350-0) NRBC/100 WBC (test See_Comment [Automat ed code = 9366932734) message] The system which generated this result transmitted reference range : 0.0 - 10.0 /100 WBCs. The refer ence range was not u sed to interpret th is result as normal/abnormal . NRBC x10^3 (test code <0.01 See_Comment [Auto mated = 8911520826) message] The s ystem which generated this result transmitted reference range : 10*3/?L. The reference range was not used to interpret this result as normal/abnormal . GRAN MAT (NEUT) % 71.5 % (test code = 770-8) IMM GRAN % (test code 0.70 % = 8660639857) LYMPH % (test code = 16.7 % 736-9) MONO % (test code = 10.7 % 5905-5) EOS % (test code = 0.2 % 713-8) BASO % (test code = 0.2 % 706-2) GRAN MAT x10^3(ANC) 7.17 10*3/uL 1.88-7.09 H (test code = 1360097570) IMM GRAN x10^3 (test 0.07 10*3/uL 0-0.06 H code = 3390846030) LYMPH x10^3 (test code 1.68 10*3/uL 1.32-3.29 = 731-0) MONO x10^3 (test code 1.07 10*3/uL 0.33-0.92 H = 742-7) EOS x10^3 (test code = <0.03 0.03-0.39 L 711-2) BASO x10^3 (test code <0.03 0.01-0.07 = 704-7) Lab Interpretation Abnormal (test code = 78950-8) [facility]RHO (D) IMMUNE [id number] 17:02:16 Test Item Value Reference Range Interpretation Comments RHIG CANDIDATE? No- see comment mom is Rh PosPerformed (test code = at [facility] Laborat ory 5055) Services - [facility] Blood [address] [place] [id number] Free: [phone] A No. [id number] [facility] HospitalCORONAVIRUS COVID-19 [id number] 15:52:00 Test Item Value Reference Range Interpretation Comments SARS-CoV-2 (test code = Not Detected Not Detected 72825-3) DANAE (test code = DANAE) ID NOW COVID-19 Assay is an isothermal nucleic acid amplification test intended for the qualitative detection of nucleic acid from SARS-CoV-2 viral RNA in nasopharyngeal (SECURITY CONTROLS ASSESSOR) specimens. It is used under Emergency Use Authorization (EUA) by FDA. The limit of detection (LOD) of the assay is 125 Genome Equivalents/mL. A positive result is indicative of the presence of SARS-CoV-2 RNA. ?Clinical correlation with patient history and other diagnostic information is necessary to determine patient infection status. A negative (Not Detected) result does not preclude SARS-CoV-2 infection and should not be used as the sole basis for patient management decisions. ? Invalid: Please collect a new specimen for repeat patient testing if clinically indicated. Lab Interpretation Normal (test code = 06703-8) [facility] HospitalVENOUS CORD [id number] 14:48:00 Test Item Value Reference Range Interpretation Comments VENOUS BASE EXCESS, mEq/L CORD (test code = 5781007954) VENOUS PH, CORD (test 7.25-7.45 code = 9694801000) VENOUS PC02, CORD See_Comment [Automate d message] The (test code = system which ge nerated 2339616330) this result tra nsmitted reference range : 27 - 49 mmHg. The refer ence range was not used to interpret this result as normal/abnormal . VENOUS PO2, CORD (test See_Comment [Aut omated message] The code = 5854862278) system [facility] generated this result tra nsmitted reference range : 17 - 41 mmHg. The refer ence range was not used to interpret this result as normal/abnormal . VENOUS BICARBONATE, See_Comment [Automa yani message] The CORD (test code = system [facility] generated 1398674059) this result tra nsmitted reference range : 12 - 29 mEq/L. The refe rence range was not used to interpret this result as normal/abnormal . [facility] CORD [id number] 14:45:00 Test Item Value Reference Range Interpretation Comments BASE EXCESS, CORD mEq/L (test code = 4035587804) AC PH, CORD (BEAKER) 7.18-7.38 (test code = 2677319147) PC02, CORD (test code See_Comment [Auto mated message] The = 2962844894) system which g enerated this result transmit yani reference range : 32 - 66 mmHg. The refer ence range was not used to interpret this result as normal/abnormal . PO2, CORD (test code See_Comment [Autom ated message] The = 9534686300) system which g enerated this result transmit yani reference range : 10 - 30 mmHg. The refer ence range was not used to interpret this result as normal/abnormal . BICARBONATE, CORD See_Comment [Automate d message] The (test code = system which ge nerated this 6089595280) result transmit yani reference range : 17 - 27 mEq/L. The refe rence range was not used to interpret this result as normal/abnormal . [facility] HospitalADC OR [facility] ONLY - [id number] 07:28:00 Test Item Value Reference Range Interpretation Comments RPR (Qualitative) (test code = Nonreactive Nonreactive 54663-3) Lab Interpretation (test code = Normal 93733-8) [facility] HospitalHEPATITIS B SURFACE [id number] 02:04:00 Test Item Value Reference Range Interpretation Comments HBsAg Semi-Quantitative (test code = Negative Negative 5195-3) [facility] HospitalHIV 1/2 AG-AB WITH [id number] 17:23:00 Test Item Value Reference Range Interpretation Comments HIV Negative Negative Semi-quantitative (test code = 88366-8) DANAE (test code = Non-reactive for HIV-1 DANAE) antigen and HIV-1/HIV-2 antibodies. ?No laboratory evidence of HIV infection. ?Repeat in 2-4 weeks if acute HIV infection is suspected. [facility] HospitalType and Screen - ONCE [id number] 17:07:23 Test Item Value Reference Range Interpretation Comments ABO & RH (test code A Positive Performe d at [facility] = 20) Laboratory [facility] Blood [facility] [place], [place] [address]Toll Free: [phone] A No. [id number] IAT (test code = Negative Performed a t [facility] 1185) Laboratory [facility] [address] [place], [place] [address]Toll Free: [phone] A No. [id number] [facility] HospitalPROTEIN CREAT RATIO URINE [id number] 16:44:00 Test Item Value Reference Range Interpretation Comments T. PROT U (test code = 2888-6) 12 mg/dL CREAT U (test code = 9003136476) 30.8 mg/dL Protein/Creatinine Ratio Urine 0.0-2.0 (test code = 0911010142) [facility]. METABOLIC PANEL (45069)2019-08-21 16:43:00 Test Item Value Reference Range Interpretation Comments NA (test code = 135 mmol/L 135-145 3736128842) K (test code = 4.8 mmol/L 3.5-5 8331824604) CL (test code = 104 mmol/L 98-108 9201160764) CO2 TOTAL (test code = 21 mmol/L 23-31 L 0051245709) AGAP (test code = 2-16 8290307509) BUN (test code = 7 mg/dL 7-23 3967384957) GLUCOSE (test code = 87 mg/dL 70-110 2289951845) CREATININE (test code = 0.41 mg/dL 0.5-1.04 L 8684898699) TOTAL BILI (test code = 0.1 mg/dL 0.1-1.2 6834426915) CALCIUM (test code = 9.9 mg/dL 8.6-10.6 7494231361) T PROTEIN (test code = 6.6 g/dL 6.3-8.2 4132708197) ALBUMIN (test code = 3.6 g/dL 3.5-5 8877462620) ALK PHOS (test code = 139 U/L 34-122 H 8070286152) ALTv (test code = 15 U/L 5-35 1742-6) AST(SGOT) (test code = 21 U/L 13-40 1290667406) eGFR Calculation mL/min/1.73m2 (Non-) (test code = 9877290957) eGFR Calculation mL/min/1.73m2 () (test code = 1220873203) DANAE (test code = DANAE) Association of Glomerular Filtration Rate (GFR) and Staging of Kidney Disease* + --+ --+ ------+| GFR (mL/min/1.73 m2) ?| With Kidney Damage ?| ?Without Kidney Damage+ --------+ --------+ +| ?>90 ?| ?Stage one ?| ? Normal ?+ ---+ ---+ -------+| ?60-89 ?| ?Stage two ?| ? Decreased GFR ? + --+ --+ ------+| ?30-59 ?| ?Stage three ?| ? Stage three ? + --+ --+ ------+| ?15-29 ?| ?Stage four ? | ? Stage four ?+ ---+ ---+ -------+| ?<15 (or dialysis) ? ?| ?Stage five ? | ? Stage five ?+ ---+ ---+ -------+ *Each stage assumes the associated GFR level has been in effect for at least three months. ?Stages 1 to 5, with or without kidney disease, indicate chronic kidney disease. Notes: Determination of stages one and two (with eGFR >59mL/min/1.73 m2) requires estimation of kidney damage for at least three months as defined by structural or functional abnormalities of the kidney, manifested by either:Pathological abnormalities or Markers of kidney damage (including abnormalities in the composition of the blood or urine or abnormalities in imaging tests). Lab Interpretation Abnormal (test code = 62587-0) [facility] HospitalURIC [id number] 16:43:00 Test Item Value Reference Range Interpretation Comments URIC ACID (test code = 1587138241) 4.7 mg/dL 2.9-6 Lab Interpretation (test code = Normal 34217-5) [facility] HospitalLACTATE [id number] 16:41:00 Test Item Value Reference Range Interpretation Comments LDH (test code = 7205018523) 341 U/L 300-600 Lab Interpretation (test code = Normal 17955-2) [facility] HospitalCB WITH [id number] 16:30:00 Test Item Value Reference Range Interpretation Comments WBC (test code = See_Comment [Automated 5390-2) message] The sy stem which generated this result transmitted reference range : 4.30 - 11.10 10*3/?L. The reference range was not used to interpret this result as normal/abnormal . RBC (test code = See_Comment [Automated 6298) message] The sy stem which generated this result transmitted reference range : 3.93 - 5.25 10*6/?L. The reference range was not used to interpret this result as normal/abnormal . HGB (test code = 11.7 g/dL 11.6-15 718-7) HCT (test code = 37.0 % 35.7-45.2 4544-3) MCV (test code = 83.9 fL 80.6-95.5 787-2) MCH (test code = 26.5 pg 25.9-32.8 785-6) MCHC (test code = 31.6 g/dL 31.6-35.1 786-4) RDW-SD (test code = 47.3 fL 39-49.9 50668-2) RDW-CV (test code = 15.5 % 12-15.5 788-0) PLT (test code = See_Comment [Automated 777-3) message] The sy stem which generated this result transmitted reference range : 166 - 358 10*3/ ?L. The reference r ainsley was not used to interpret this result as normal/abnormal . MPV (test code = 11.1 fL 9.5-12.9 66091-4) NRBC/100 WBC (test See_Comment [Automat ed code = 2416190604) message] The system which generated this result transmitted reference range : 0.0 - 10.0 /100 WBCs. The refer ence range was not u sed to interpret th is result as normal/abnormal . NRBC x10^3 (test code <0.01 See_Comment [Auto mated = 0630029074) message] The s ystem which generated this result transmitted reference range : 10*3/?L. The reference range was not used to interpret this result as normal/abnormal . GRAN MAT (NEUT) % 78.2 % (test code = 770-8) IMM GRAN % (test code 0.70 % = 6041874615) LYMPH % (test code = 12.3 % 736-9) MONO % (test code = 8.4 % 5905-5) EOS % (test code = 0.2 % 713-8) BASO % (test code = 0.2 % 706-2) GRAN MAT x10^3(ANC) 7.73 10*3/uL 1.88-7.09 H (test code = 5008011983) IMM GRAN x10^3 (test 0.07 10*3/uL 0-0.06 H code = 9505958436) LYMPH x10^3 (test code 1.22 10*3/uL 1.32-3.29 L = 731-0) MONO x10^3 (test code 0.83 10*3/uL 0.33-0.92 = 742-7) EOS x10^3 (test code = <0.03 0.03-0.39 L 711-2) BASO x10^3 (test code <0.03 0.01-0.07 = 704-7) Lab Interpretation Abnormal (test code = 54554-0) [facility] ONLY - FERN [id number] 13:36:00 Test Item Value Reference Range Interpretation Comments Fern Test (test code = 2582446095) Negative [facility] URINALYSIS W/O SPECIFIC [id number] 20:59:00 Test Item Value Reference Range Interpretation Comments POCT PH U (test code = 3254) n/a 5-8 POCT U LEUK EST (test code = 3263) n/a Negative - Negative POCT U NIT (test code = 3262) n/a Negative - Negative POCT U PROT (test code = 3259) neg Negative - Negative POCT U GLU (test code = 3256) neg Negative - Negative POCT U KETONE (test code = 3258) n/a Negative - Negative POCT U BLD (test code = 3257) n/a Negative - Negative Lab Interpretation (test code = Normal 86450-8) [facility] URINALYSIS W/O SPECIFIC [id number] 16:48:00 Test Item Value Reference Range Interpretation Comments POCT PH U (test code = 3254) n/a 5-8 POCT U LEUK EST (test code = 3263) n/a Negative - Negative POCT U NIT (test code = 3262) n/a Negative - Negative POCT U PROT (test code = 3259) neg Negative - Negative POCT U GLU (test code = 3256) neg Negative - Negative POCT U KETONE (test code = 3258) n/a Negative - Negative POCT U BLD (test code = 3257) n/a Negative - Negative Lab Interpretation (test code = Normal 44914-0) [facility]>14 WEEKS US [id number] 18:13:17Limited USG for presentation: ?Cephalic Renu Gale MD ?08/02/2019 ?1:08 [facility] LIMITED 2019-08-02 18:13:17Limited USG for presentation: ?Cephalic Renu Gale MD ?08/02/2019 ?1:08 PMCovenant Children's HospitalGROUP B STREPTOCOCCUS BY [id number] 16:34:00 Test Item Value Reference Range Interpretation Comments Group B Streptococcus by PCR (test Negative Negative code = 31272-7) Lab Interpretation (test code = Normal 14110-5) [facility] HospitalGROUP B STREPTOCOCCUS BY [id number] 16:34:00 Test Item Value Reference Range Interpretation Comments Group B Streptococcus by PCR (test Negative Negative code = 34624-5) Lab Interpretation (test code = Normal 21373-9) [facility] HospitalGC & CHLAMYDIA AMPLIFIED [id number] 17:41:00 Test Item Value Reference Range Interpretation Comments C. trachomatis Nucleic Acid (test Negative Negative code = 94364-8) N. gonorrhoeae Nucleic Acid (test Negative Negative code = 28150-5) Lab Interpretation (test code = Normal 32043-9) [facility] HospitalGC & CHLAMYDIA AMPLIFIED [id number] 17:41:00 Test Item Value Reference Range Interpretation Comments C. trachomatis Nucleic Acid (test Negative Negative code = 20393-6) N. gonorrhoeae Nucleic Acid (test Negative Negative code = 57298-0) Lab Interpretation (test code = Normal 03394-6) [facility] HospitalPOCT URINALYSIS W/O SPECIFIC [id number] 21:05:00 Test Item Value Reference Range Interpretation Comments POCT PH U (test code = 3254) N/A 5-8 POCT U LEUK EST (test code = N/A Negative - Negative 3263) POCT U NIT (test code = 3262) N/A Negative - Negative POCT U PROT (test code = 3259) Negative Negative - Negative POCT U GLU (test code = 3256) Negative Negative - Negative POCT U KETONE (test code = 3258) N/A Negative - Negative POCT U BLD (test code = 3257) N/A Negative - Negative [facility] URINALYSIS W/O SPECIFIC [id number] 21:05:00 Test Item Value Reference Range Interpretation Comments POCT PH U (test code = 3254) N/A 5-8 POCT U LEUK EST (test code = N/A Negative - Negative 3263) POCT U NIT (test code = 3262) N/A Negative - Negative POCT U PROT (test code = 3259) Negative Negative - Negative POCT U GLU (test code = 3256) Negative Negative - Negative POCT U KETONE (test code = 3258) N/A Negative - Negative POCT U BLD (test code = 3257) N/A Negative - Negative [facility] URINALYSIS W/O SPECIFIC [id number] 17:43:00 Test Item Value Reference Range Interpretation Comments POCT PH U (test code = 3254) n/a 5-8 POCT U LEUK EST (test code = 3263) n/a Negative - Negative POCT U NIT (test code = 3262) n/a Negative - Negative POCT U PROT (test code = 3259) neg Negative - Negative POCT U GLU (test code = 3256) neg Negative - Negative POCT U KETONE (test code = 3258) n/a Negative - Negative POCT U BLD (test code = 3257) n/a Negative - Negative [facility] URINALYSIS W/O SPECIFIC [id number] 20:02:00 Test Item Value Reference Range Interpretation Comments POCT PH U (test code = 3254) n/a 5-8 POCT U LEUK EST (test code = n/a Negative - Negative 3263) POCT U NIT (test code = 3262) n/a Negative - Negative POCT U PROT (test code = 3259) negative Negative - Negative POCT U GLU (test code = 3256) negative Negative - Negative POCT U KETONE (test code = 3258) n/a Negative - Negative POCT U BLD (test code = 3257) n/a Negative - [facility] [id number] 20:02:00 Test Item Value Reference Range Interpretation Comments POCT PH U (test code = 3254) n/a 5-8 POCT U LEUK EST (test code = n/a Negative - Negative 3263) POCT U NIT (test code = 3262) n/a Negative - Negative POCT U PROT (test code = 3259) negative Negative - Negative POCT U GLU (test code = 3256) negative Negative - Negative POCT U KETONE (test code = 3258) n/a Negative - Negative POCT U BLD (test code = 3257) n/a Negative - Negative [facility]"
[2021-10-16] MEDS ORDERED: ACETAMINOPHEN 500 MG TAB ONE (01:21)
[2021-10-16] MEDS ORDERED: ALBUTEROL INHALER 60 PUFF/8 GM IH ONE (01:21)
[2021-10-16 02:21] LABS: Urine Blood Trace-lysed (Negative); Urine Glucose Negative (Negative); Urine Protein Negative (Negative)
--- NOTE | 2021-10-16 04:21 | ER ---
Nurse's Notes [facility] Name: Leeann Morataya Age: 21 yrs Sex: Female : 2000 Arrival Date: 10/15/2021 Time: 22:02 Bed 26 Private MD: Diagnosis: Influenza Presentation: 10/15 23:21 Chief complaint: Patient states: I got tested positive for the flu last week and since ll3 yesterday when I take a deep breath I have pain in my right rib cage. Coronavirus screen: Vaccine status: Patient reports being unvaccinated. cough unrelated to allergies, difficulty breathing, muscle pain. Ebola Screen: No symptoms or risks identified at this time. Initial Sepsis Screen: Does the patient meet any 2 criteria? No. Patient's initial sepsis screen is negative. Does the patient have a suspected source of infection? No. Patient's initial sepsis screen is negative. Risk Assessment: Do you want to hurt yourself or someone else? Patient reports no desire to harm self or others. Onset of symptoms was October 15, 2021. 23:21 Method Of Arrival: Ambulatory ll3 23:21 Acuity: RODRIGO 3 ll3 Triage Assessment: 23:23 General: Appears uncomfortable, Behavior is calm, cooperative. Pain: Complains of pain ll3 in right lateral anterior chest Pain currently is 2 out of 10 on a pain scale. at worst was 5 out of 10 on a pain scale. Pain began 1 day ago. Is continuous, Aggravated by Taking a deep breath. Neuro: Level of Consciousness is awake, alert, obeys commands, Oriented to person, place, time, situation. Cardiovascular: Patient's skin is warm and dry. Respiratory: Reports pain with respiration since Yesterday Pain is 5 out of 10 on a pain scale. Respiratory effort is even, unlabored, Respiratory pattern is regular, symmetrical, Onset: The symptoms/episode began/occurred yesterday, the patient has mild shortness of breath. Derm: Skin is pink, warm \T\ dry. 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 - Social history:: Smoking status: Patient denies any tobacco usage or history of. Screenin:42 Abuse screen: Denies threats or abuse. Nutritional screening: No deficits noted. ll3 Tuberculosis screening: No symptoms or risk factors identified. 10/16 02:14 Fall Risk None identified. ll3 Assessment: 10/15 23:42 General: See triage assessment. Cardiovascular: Patient's skin is warm and dry. Rhythm ll3 is. Respiratory: Airway is patent Respiratory effort is even, unlabored, Respiratory pattern is regular, symmetrical, 10/16 01:00 Reassessment: No changes from previously documented assessment. Patient and/or family ll3 updated on plan of care and expected duration. Pain level reassessed. Patient is alert, oriented x 3, equal unlabored respirations, skin warm/dry/pink. 02:10 Reassessment: No changes from previously documented assessment. Patient and/or family ll3 updated on plan of care and expected duration. Pain level reassessed. Patient is alert, oriented x 3, equal unlabored respirations, skin warm/dry/pink. 03:45 Reassessment: No changes from previously documented assessment. Patient and/or family ll3 updated on plan of care and expected duration. Pain level reassessed. Patient is alert, oriented x 3, equal unlabored respirations, skin warm/dry/pink. Vital Signs: 10/15 23:41 BP 114 / 58; Pulse 68; Resp 17; Temp 98.1(TE); Pulse Ox 100% on R/A; Weight 90.72 kg ll3 (R); Height 5 ft. 4 in. (162.56 cm) (R); Pain 5/10; 10/16 00:45 BP 122 / 76; Pulse 87; Resp 16; Pulse Ox 100% on R/A; ll3 02:14 BP 109 / 68; Pulse 85; Resp 17; Pulse Ox 100% on R/A; ll3 10/15 23:41 Body Mass Index 34.33 (90.72 kg, 162.56 cm) ll3 ED Course: 10/15 22:02 Patient arrived in ED. jj6 23:23 Triage completed. ll3 23:23 Arm band placed on Patient placed in an exam room, on a stretcher, on pulse oximetry. ll3 23:26 Claudia Novak, RN is Primary Nurse. ll3 23:42 Patient has correct armband on for positive identification. Bed in low position. Call ll3 light in reach. Side rails up X 1. 10/16 00:04 Will Hampton MD is Attending Physician. 7 00:51 Chest Pa And Lat (2 Views) XRAY In Process Unspecified. EDMS 04:32 No provider procedures requiring assistance completed. Patient did not have IV access ll3 during this emergency room visit. Administered Medications: 01:27 Drug: Tylenol 1000 mg Route: PO; jb4 04:31 Follow up: Response: No adverse reaction ll3 01:28 Drug: Albuterol HFA Inhaler 2 puffs Route: Inhalation; jb4 04:31 Follow up: Response: No adverse reaction ll3 Medication: 10/15 23:42 VIS not applicable for this client. ll3 Outcome: 10/16 04:21 Discharge ordered by . [facility] 04:32 Discharged to home ambulatory, with significant other. ll3 04:32 Condition: stable 04:32 Discharge instructions given to patient, significant other, Instructed on discharge instructions, follow up and referral plans. Demonstrated understanding of instructions, follow-up care. 04:32 Patient left the ED. ll3 Signatures: Dispatcher [employer] EDAK Juan Gerber, RN RN jb4 Will Hampton MD MD 7 Kassidy Morris Lyn[place], RN RN ll3
--- NOTE | 2021-10-16 04:21 | EDPHYS ---
Physician Documentation [facility] Name: Leeann Morataya Age: 21 yrs Sex: Female : 2000 Arrival Date: 10/15/2021 Time: 22:02 Bed 26 Private MD: ED Physician Will Hampton HPI: 10/16 00:25 This 21 yrs old Female presents to ER via Ambulatory with complaints of RT SIDE PAIN, mh7 Breathing Difficulty. 00:25 The patient or guardian reports cough, described as moderate, with productive sputum, mh7 that is yellow, difficulty breathing, right lower chest wall pain. Onset: The symptoms/episode began/occurred 1 week(s) ago. Severity of symptoms: At their worst the symptoms were moderate, 4 day(s) ago, in the emergency department the symptoms have improved, mildly. Modifying factors: The symptoms are alleviated by nothing, the symptoms are aggravated by nothing. Associated signs and symptoms: Pertinent negatives: diarrhea, ear ache, fever, nausea, vomiting. 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 - Social history:: Smoking status: Patient denies any tobacco usage or history of. ROS: 10/16 00:25 Constitutional: Negative for fever, chills, and weight loss, Eyes: Negative for injury, mh7 pain, redness, and discharge, ENT: Negative for injury, pain, and discharge, Neck: Negative for injury, pain, and swelling, Abdomen/GI: Negative for abdominal pain, nausea, vomiting, diarrhea, and constipation, Back: Negative for injury and pain, : Negative for injury, bleeding, discharge, and swelling, MS/Extremity: Negative for injury and deformity, Skin: Negative for injury, rash, and discoloration, Neuro: Negative for headache, weakness, numbness, tingling, and seizure, Psych: Negative for depression, anxiety, suicide ideation, homicidal ideation, and hallucinations, Allergy/Immunology: Negative for hives, rash, and allergies, Endocrine: Negative for neck swelling, polydipsia, polyuria, polyphagia, and marked weight changes, Hematologic/Lymphatic: Negative for swollen nodes, abnormal bleeding, and unusual bruising. Exam: 00:25 Constitutional: This is a well developed, well nourished patient who is awake, alert, mh7 and in no acute distress. Head/Face: Normocephalic, atraumatic. Eyes: Pupils equal round and reactive to light, extra-ocular motions intact. Lids and lashes normal. Conjunctiva and sclera are non-icteric and not injected. Cornea within normal limits. Periorbital areas with no swelling, redness, or edema. ENT: Nares patent. No nasal discharge, no septal abnormalities noted. Tympanic membranes are normal and external auditory canals are clear. Oropharynx with no redness, swelling, or masses, exudates, or evidence of obstruction, uvula midline. Mucous membranes moist. Neck: Trachea midline, no thyromegaly or masses palpated, and no cervical lymphadenopathy. Supple, full range of motion without nuchal rigidity, or vertebral point tenderness. No Meningismus. 00:25 Cardiovascular: Regular rate and rhythm with a normal S1 and S2. No gallops, murmurs, or rubs. Normal PMI, no JVD. No pulse deficits. Respiratory: Lungs have equal breath sounds bilaterally, clear to auscultation and percussion. No rales, rhonchi or wheezes noted. No increased work of breathing, no retractions or nasal flaring. Abdomen/GI: Soft, non-tender, with normal bowel sounds. No distension or tympany. No guarding or rebound. No evidence of tenderness throughout. Back: No spinal tenderness. No costovertebral tenderness. Full range of motion. Skin: Warm, dry with normal turgor. Normal color with no rashes, no lesions, and no evidence of cellulitis. MS/ Extremity: Pulses equal, no cyanosis. Neurovascular intact. Full, normal range of motion. Neuro: Awake and alert, GCS 15, oriented to person, place, time, and situation. Cranial nerves II-XII grossly intact. Motor strength 5/5 in all extremities. Sensory grossly intact. Cerebellar exam normal. Normal gait. Psych: Awake, alert, with orientation to person, place and time. Behavior, mood, and affect are within normal limits. 00:25 Chest/axilla: Inspection: normal, Palpation: tenderness, that is moderate, of the right lateral posterior chest, that totally reproduces the patient's complaints, Axilla: are normal, Lymph nodes: lymphadenopathy is not appreciated. Vital Signs: 10/15 23:41 BP 114 / 58; Pulse 68; Resp 17; Temp 98.1(TE); Pulse Ox 100% on R/A; Weight 90.72 kg ll3 (R); Height 5 ft. 4 in. (162.56 cm) (R); Pain 5/10; 10/16 00:45 BP 122 / 76; Pulse 87; Resp 16; Pulse Ox 100% on R/A; ll3 02:14 BP 109 / 68; Pulse 85; Resp 17; Pulse Ox 100% on R/A; ll3 10/15 23:41 Body Mass Index 34.33 (90.72 kg, 162.56 cm) ll3 MDM: 04:18 Differential Diagnosis: Obstructed Airway Bronchitis Influenza Upper Respiratory 7 Infection Asthma Exacerbation Viral Syndrome Pneumonia. Data reviewed: vital signs, nurses notes, lab test result(s), Flu: positive radiologic studies, plain films. Data interpreted: Pulse oximetry: on room air is 100 %. Interpretation: normal. Counseling: I had a detailed discussion with the patient and/or guardian regarding: the historical points, exam findings, and any diagnostic results supporting the discharge/admit diagnosis, lab results, radiology results, the need for outpatient follow up, to return to the emergency department if symptoms worsen or persist or if there are any questions or concerns that arise at home. Response to treatment: the patient's symptoms have resolved after treatment, the patient's blood pressure is in an acceptable range, mental status has returned to baseline, the patient no longer shows bradycardia, the patient is not short of breath, the patient is not tachycardic, the patient's pain is gone, the patient's temperature has normalized. 04:21 Patient medically screened. [facility] 10/16 00:30 Order name: COVID-19 SARS RT PCR (Document "Date of Onset" if Symptomatic); Complete [facility] Time: 03:10/16 00:30 Order name: Influenza Screen (a \\T\\ B); Complete Time: 03:09 [facility] 10/15 23:52 Order name: Chest Pa And Lat (2 Views) XRAY lp1 10/16 00:30 Order name: Rapid Strep; Complete Time: 03:09 [facility] 10/16 02:07 Order name: Throat Culture EDVT 06/01 02:21 Order name: Urine Dipstick-Ancillary; Complete Time: 03:09 EDMS 10/16 00:30 Order name: Urine Dipstick-Ancillary (obtain specimen); Complete Time: 02:22 mh7 10/16 00:30 Order name: Urine Test (obtain specimen); Complete Time: 02:22 mh7 Administered Medications: 01:27 Drug: Tylenol 1000 mg Route: PO; jb4 04:31 Follow up: Response: No adverse reaction ll3 01:28 Drug: Albuterol HFA Inhaler 2 puffs Route: Inhalation; jb4 04:31 Follow up: Response: No adverse reaction ll3 Disposition Summary: 10/16/21 04:21 Discharge Ordered Location: Home [facility] Problem: new mh Symptoms: have improved mh Condition: Stable mh7 Diagnosis - Influenza mh7 Followup: [facility] - With: Private Physician - When: 1 - 2 days - Reason: Worsening of condition, Recheck today's complaints, Continuance of care, Re-evaluation by your physician Discharge Instructions: - Discharge Summary Sheet [facility] - Influenza, Adult, [id number] [facility] Forms: - Medication Reconciliation Form [facility] - Thank You Letter 7 - Antibiotic Education [facility] - Prescription Opioid Use [facility] Signatures: Dispatcher [employer] EDVT Juan Gerber RN RN jb4 Will Hampton MD MD 7 Claudia Novak RN RN ll3 Corrections: (The following items were deleted from the chart) 01:34 01:31 This 21 yrs old Female presents to ER via Ambulatory with complaints of RT SIDE mh7 PAIN, Breathing Difficulty. [facility]
[2021-10-16 04:48] VITALS: TEMP 98.1; O2SAT 100
[2021-10-16 04:51] VITALS: BP 109/68
--- NOTE | 2021-10-16 14:17 | RAD REPORT ---
EXAM DESCRIPTION: Chest Pa And Lat (2 Views) [employer]: XR CHEST 2 VIEWS CLINICAL HISTORY: RIB PAIN - RIGHT. COMPARISON: None. TECHNIQUE: Two views: PA and lateral chest radiograph(s). FINDINGS: The lungs are clear. No pulmonary infiltrate or edema identified. No pleural effusion. N o pneumothorax. Nonenlarged cardiomediastinal silhouette. No significant osseous abnormality. No defi nite acute rib fracture. Consider correlation with dedicated rib radiographs if clinically necessary. IMPRESSION: No acute cardiopulmonary abnormality identified by radiograph. Electronically signed by: Mildred Day MD 10/16/2021 12:56 AM CDT Due to temporary technical issues with the PACS/Fluency reporting system, reports are being signed by the in house radiologists without review as a courtesy to insure prompt reporting. The interpreting radiologist is fully responsible for the content of the report.
== END 2021-10-16 04:32 | disposition home or self-care (01) ==
LOC: ER 22:01
DX: J11.1 Influenza due to unidentified influenza virus with other respiratory manifestations (principal); Z20.822 Contact with and (suspected) exposure to COVID-19; Z88.0 Allergy status to penicillin
CPT/HCPCS: 87070; 87081; 81003; 87804 ×2; 71046; 99284; U0003

== ENCOUNTER 2022-05-20 22:38 | Emergency (ER) | payer OTHER ==
--- OUTSIDE RECORDS SUMMARY | 2022-05-20 22:41 | XMS REPORT | Continuity of Care Document ---
:2000 Author Organization [facility] t Address [address] [place] [address] Care Team Providers Name Role Phone PCP, PATIENT DOES NOT HAVE A Primary Care Physician Unavaila PERRY Ramos Attending Clinician Unavailable Elenita Vásquez PT Attending Clinician Unavailable Perry Lind MD Attending Clinician Renu Gale MD Attending Clinician RENU GALE Attending Clinician Unavailable Doctor Unassigned, [place] Attending Clinician Unavailable SARAH MIGUEL Attending Clinician Unavailable Sarah Miguel DO Attending Clinician Yamilet Guadalupe MD Attending Clinician Dunia Stanley PA-C Attending Clinician DUNIA STANLEY Attending Clinician Unavailable Pob, [facility] Lab Main Attending Clinician Unavailable Eze VELIZ, Kary Attending Clinician Unavailable Ultrasound, Adc [facility] Attending Clinician Unavailable Nayely Muller MD, Cameron Attending Clinician [phone] RENU GALE Admitting Clinician Unavailable Yamilet Guadalupe MD Admitting Clinician Renu Gale MD Admitting Clinician Payers Payer Name Policy Type Policy Number Effective Date Expiration Date [facility] [id number] 2019 CHOICE MEDICAID 00:00:00 Problems Condition Condition Condition Status Onset Resolution Last Treating Co mments Source Name Details Category Date Date Treatment Clinician Date Anxiety Anxiety Problem Active [facility] Sinus Sinus Problem Active Common problem problem [facility] No known No known Disease Unive rs active active ity of problems problems [place] [facility] Allergic Allergic Problem Active Commo n rhinitis, rhinitis, Spir it unspecifie unspecifie - [facility] seasonalit seasonalit Jennifer kes y, y, Medical unspecifie unspecifie Ce nter d trigger d trigger , , Problem Active C ommon unspecifie unspecifie Sp makayla d d - [facility] Depression Depression Problem Active C ommon screening screening [facility] Depression Depression Problem Active C ommon [facility] Seasonal Seasonal Problem Active Commo n allergies allergies [facility] Allergies, Adverse Reactions, Alerts Allergy Allergy Status Severity Reaction(s) Onset Inactive Treating Comm ents Source Name Type Date Date Clinician Penicill Propensi Active Shortness of Univers ins ty to Breath 02-07 ity of adverse 00:00: [place] reaction Medical s Branch PENICILL Drug Active Rash Univers INS Class 9-23 ity of 00:00: Medical Branch penicill Adverse Active Info Not Commo n in Reaction Available [facility] Social History Social Habit Start Date Stop Date Quantity Comments Source History [facility] University o f Alcohol Frequency [facility] edical Branch History [facility] University o f Alcohol Std [place] [facility] Drinks Branch History [facility] o f Alcohol Binge [place] [facility] Exposure to 2021-10-11 2021-10-21 Not sure University of SARS-CoV-2 00:00:00 16:14:00 [place] [facility] (event) Branch Alcohol intake 2021-10-21 2021-10-21 Current drinker of Un iversity of 00:00:00 00:00:00 alcohol (finding) [facility] edical Branch Alcohol Comment 2021-10-21 2021-10-21 occasionally Univers ity of 00:00:00 00:00:00 [place] [facility] History SDOH 2019-08-22 2019-08-22 5 University o f Financial 00:00:00 00:00:00 [facility] Branch Education 2019-08-21 2019-08-21 15 University of 00:00:00 00:00:00 [facility] Tobacco use and 2019-02-07 2019-02-07 Never used Universit y of exposure 00:00:00 00:00:00 [facility] Sex Assigned At 2000 2000 Universit y of 00:00:00 00:00:00 [facility] Smoking Status Start Date Stop Date Source Never smoker [facility] Medications Ordered Filled Start Stop Current Ordering Indication Dosage Frequency Signature Comments Components Source Medication Medication Date Date Medication? Clinician (SIG) Name Name monica Yes [id number] 500mg Take 1 Univers n 500 mg 6-08 tablet by ity of tablet 00:00: mouth [place] 00 daily. Medical Branch monica Yes [id number] 500mg Take 1 Univers n 500 mg 6-08 tablet by ity of tablet 00:00: mouth [place] 00 daily. Medical Branch monica Yes [id number] 500mg Take 1 Univers n 500 mg 6-08 tablet by ity of tablet 00:00: mouth [place] 00 daily. Medical Branch ferrous 2020-0 Yes [id number] 325mg Take 1 Univers sulfate 325 4-07 102 tablet by ity of mg (65 mg 00:00: mouth 2 [place] iron) 00 (two) Medical tablet times Branch daily. ferrous 2020-0 Yes [id number] 325mg Take 1 Univers sulfate 325 4-07 102 tablet by ity of mg (65 mg 00:00: mouth 2 [place] iron) 00 (two) Medical tablet times Branch daily. ferrous 2020-0 Yes [id number] 325mg Take 1 Univers sulfate 325 4-07 102 tablet by ity of mg (65 mg 00:00: mouth 2 [place] iron) 00 (two) Medical tablet times Branch daily. Immunizations Ordered Filled Immunization Date Status Comments [facility] e Immunization Name Name TDAP (ADACEL) 2019-06-29 Completed University of VACCINE 00:00:00 [facility] TDAP (ADACEL) 2019-06-29 Completed University of VACCINE 00:00:00 [facility] TDAP (ADACEL) 2019-06-29 Completed University of VACCINE 00:00:00 [facility] Influenza Virus 2019-03-23 Completed Universit y of Vaccine Quad .5 mL 00:00:00 [facility] 6+ [place] Branch Influenza Virus 2019-03-23 Completed Universit y of Vaccine Quad .5 mL 00:00:00 [facility] 6+ MO Branch Influenza Virus 2019-03-23 Completed Universit y of Vaccine [place] .5 mL 00:00:00 [facility] 6+ [place] [facility] Procedures This patient has no known procedures. Encounters Start End Encounter Admission Attending Care Care Encounter Source Date/Time Date/Time Type Type Clinicians Facility Department ID 2021-03-14 Outpatient P [facility] MAC[facility] [id number] Univers 14:41:23 ity [facility] 2021-03-14 Outpatient P [facility] [id number] [facility] 2021-10-28 2021-10-28 Outpatient R ANDREW [facility] [id number] Univers 15:00:00 15:45:26 PERRY ity [facility] 2021-10-28 2021-10-28 Ancillary Fahad Elenita Chan [facility] 1.2.840. [id number] Univers 15:00:00 15:45:26 Visit Perry Lind [id number] ity of [facility] [id number] [phone] Vt dical NAL 179 [facility] 2021-10-28 2021-10-28 Outpatient R ANDREW [facility] [id number] Univers 15:00:00 15:00:00 PERRY gifford [facility] 2021-10-25 2021-10-25 Telephone Renu Gale [facility] 1.2.840.114 [id number] Univers 00:00:00 00:00:00 Cam [place] [id number] i ty of [id number] [phone] Vt dical NAL 134 [facility] 2021-10-24 2021-10-24 Telephone Renu Gale HIKJ 1.2.840.114 [id number] Univers 00:00:00 00:00:00 Cam [place] [id number] i ty [id number] [phone] Vt dical NAL 134 [facility] 2021-10-23 2021-10-23 Case Renu Gale [facility] [id number] Univers 00:00:00 00:00:00 Management Ankush ROBBINS [id number] ity of [id number] [phone] [address] 2021-10-21 2021-10-21 Outpatient R SHAHLA [facility] [id number] Univers 16:15:00 16:49:16 ity of [facility] 2021-10-21 2021-10-21 [facility] [id number] Univers 16:15:00 16:49:16 Ankush ROBBINS [id number] ity of Visit [place] [id number] [facility] [phone] [address] 2021-10-21 2021-10-21 [facility] [id number] Univers 16:15:00 16:49:16 ity of [facility] 2021-10-21 2021-10-21 Orders Doctor KEDAR 1.2.840.114 [id number] Univers 00:00:00 00:00:00 Only Unassigned, [place] [id number] ity of [place] [facility] [id number] Richard [phone] [facility] 009 [place] 2021-10-03 2021-10-03 Emergency [facility] [id number] Univers 14:57:00 17:26:00 SARAH gifford [facility] 2021-10-03 2021-10-03 Emergency [facility] 1.2.840.114 [id number] Univers 14:57:00 17:26:00 Sarah ROBBINS [id number] ity of [place] [id number] [facility] [phone] [facility] 084 [place] 2021-10-03 2021-10-03 Orders Doctor THACKER 1.2.840.114 [id number] Univers 00:00:00 00:00:00 Only Unassigned, [place] [id number] ity of [place] [facility] [id number] Richard as [phone] [address] 2021-09-23 2021-09-23 Outpatient R RENU GALE [facility] [id number] Univers 10:30:00 [facility] 2020-06-09 2020-06-09 [facility] 1.2.840.114 [id number] Univers 00:00:00 00:00:00 Cam [place] [id number] i ty of [id number] [phone] [address] 2019-11-24 2019-11-24 Outpatient R SHAHLA [facility] [id number] Univers 10:45:00 10:45:[facility] 2019-09-22 2019-09-22 Outpatient R SHAHAL [facility] [id number] Univers 11:30:00 [facility] 2019-09-12 2019-09-12 Telephone Shahla [facility] 1.2.840.114 [id number] Univers 00:00:00 00:00:00 Cam [place] [id number] i ty [id number] [phone] [address] 2019-09-05 2019-09-05 Telephone Shahla [facility] 1.2.840.114 [id number] Univers 00:00:00 00:00:00 Cam [place] [id number] i ty [id number] [phone] [address] 2019-09-01 2019-09-01 Telephone Shahla [facility] 1.2.840.114 [id number] Univers 00:00:00 00:00:00 Cam [place] [id number] i ty [id number] [phone] [address] 2019-08-30 2019-08-30 Telephone Shahla [facility] 1.2.840.114 [id number] Univers 00:00:00 00:00:00 Cam [place] [id number] i ty [id number] [phone] [address] 2019-08-25 2019-08-25 Telephone Renu Gale [facility] 1.2.840.114 [id number] Univers 00:00:00 00:00:00 Cam [place] [id number] i ty [id number] [phone] [address] 2019-08-24 2019-08-24 Telephone Renu Gale [facility] 1.2.840.114 [id number] Univers 00:00:00 00:00:00 Cam [place] [id number] i ty [id number] [phone] [address] 2019-08-21 2019-08-23 Hospital [facility] 1.2.840.114 [id number] Univers 08:08:00 13:40:00 Encounter Yamilet Robbins [id number] ity of [id number] [phone] [facility] 083 [place] 2019-08-21 2019-08-21 Orders Doctor KEDAR 1.2.840.114 [id number] Univers 00:00:00 00:00:00 Only Unassigned, [place] [id number] ity of [place] [facility] [id number] Richard as [phone] [facility] 009 [place] 2019-08-17 2019-08-17 Telephone Renu Gale [facility] 1.2.840.114 [id number] Univers 00:00:00 00:00:00 Cam [place] 350.1.13.10 i ty [id number] [phone] [address] 2019-08-16 2019-08-16 Telephone Renu Gale [facility] 1.2.840.114 [id number] Univers 00:00:00 00:00:00 Cam Luis Alfredo [id number] i ty [id number] [phone] [facility] 134 [facility] 2019-08-10 2019-08-10 Telephone Renu Gale [facility] 1.2.840.114 [id number] Univers 00:00:00 00:00:00 Cam [place] 350.1.13.10 i ty of [id number] [phone] [facility] 134 [facility] 2019-08-08 2019-08-08 [facility] [id number] [id number] Univers 15:42:28 15:57:28 Dunia Robbins 350.1.13.10 ity of Visit [id number] [phone] [address] 2019-08-08 2019-08-08 Outpatient R JADEN [facility] [id number] Univers 15:30:00 15:30:00 DUNIA ity of [facility] 2019-08-08 2019-08-08 Orders Doctor KEDAR 1.2.840.114 [id number] Univers 00:00:00 00:00:00 Only Unassigned, [place] 350.1.13.10 ity of [place] [facility] 4.2.7.2.686 Richard as [phone] [address] 2019 2019 Stitcher Operator Raudel Regan Lab Main [facility] 1.2.8 40.114 [id number] Univers 12:19:10 12:34:10 Visit Dunia Stanley [id number] ity of [place] [phone] [facility] 353 [facility] 2019 2019 Routine [facility] 1.2.202.775 [id number] Univers 11:39:59 12:02:04 Dunia Robbins 350.1.13.10 ity of Visit [place] [phone] Vt dical nal 134 [facility] 2019 2019 Outpatient R JADEN [facility] [id number] Univers 11:30:00 11:30:00 DUNIA ity of [facility] 2019-07-27 2019-08-02 Routine [facility] 1.2.907.752 [id number] Univers 15:17:42 13:28:07 Cam [place] 350.1.13.10 ity of Visit [id number] [phone] Vt dical nal 134 [facility] 2019-08-02 2019-08-02 Hospital Renu Gale [facility] 1.2.840.114 [id number] Univers 02:46:00 04:02:00 Encounter Cam [place] 350.1.13.10 ity of [id number] [id number] [facility] 083 [place] 2019-08-02 2019-08-02 Nurse Kary Loo 1.2.840.114 [id number] Univers 00:00:00 00:00:00 Triage [place] 350.1.13.10 it y of HOSPITAL 4.2.7.2.686 Richard as [phone] [facility] 019 [place] 2019-07-27 2019-07-27 Outpatient R RENU GALE [facility] [id number] Univers 15:45:00 15:45:00 ity of [facility] 2019-07-27 2019-07-27 Orders Doctor THACKER 1.2.840.114 [id number] Univers 00:00:00 00:00:00 Only Unassigned, [place] 350.1.13.10 ity of [place] [facility] 4.2.7.2.686 Richard as [phone] [facility] 009 [place] 2019-07-13 2019-07-13 [facility] 1.2.075.856 [id number] Univers 11:05:08 11:39:44 Dunia [place] 350.1.13.10 ity of Visit [place]2.[place] [phone] Vt dical nal 134 [facility] 2019-07-13 2019-07-13 Outpatient R JADEN HIKJ [facility] [id number] Univers 11:00:00 11:00:00 DUNIA ity of [facility] 2019-06-29 2019-06-29 Routine Renu Gale [facility] 1.2.110.691 [id number] Univers 14:54:01 16:08:11 Ankush Robbins 350.1.13.10 ity of Visit [place] [phone] Vt dical nal 134 [facility] 2019-06-24 2019-06-24 Stitcher Operator Ultrasound, [facility] 1.2 .840.114 [id number] Univers 13:51:40 14:27:33 Visit Nisha Valdivia 350.1 .13.10 ity of [place].2.[place] [phone] Vt dicwy nal 134 [facility] 2019-06-14 2019-06-14 Orders Doctor KEDAR 1.2.840.114 [id number] Univers 00:00:00 00:00:00 Only Unassigned, [place] 350.1.13.10 ity of [place] [facility] 4.2.7.2.686 Richard as [phone] [address] 2019-06-13 2019-06-13 Routine Jaden [facility] 1.2.729.350 [id number] Univers 13:32:57 14:07:00 Dunia Robbins 350.1.13.10 ity of Visit [place] [phone] Vt dical nal 134 [facility] 2019-06-10 2019-06-10 Telephone Renu Gale HIKJ 1.2.840.114 [id number] Univers 00:00:00 00:00:00 Ankush Robbins 350.1.13.10 i ty of [place] [phone] Vt dical nal 220 [facility] 2019-01-10 2019-01-10 Outpatient [facility] [id number] Common 11:20:00 11:20:00 [facility] Results This patient has no known results.
[2022-05-20 23:48] LABS: Urine Blood Negative (Negative); Urine Glucose Negative (Negative); Urine Protein Negative (Negative); Urine Specific Gravity 1.015 (1.005-1.030)
[2022-05-20 23:51] LABS: Urine Specific Gravity/Preg 1.015 (1.005-1.030)
[2022-05-20 23:52] LABS: Absolute Lymphocytes (CBC) 1.9 K/uL (0.7-4.9); Hematocrit 36.5 % (36.0-45.0); Lymphocytes % 24.4 % (15.3-44.8); MCV 79.4 fL (80-100); MPV 8.7 fL (7.6-11.3); RBC Red Blood Cell Count 4.59 M/uL (3.86-4.86)
[2022-05-20] MEDS ORDERED: METOPROLOL TAR 25 MG TAB ONE (23:56)
[2022-05-20] MEDS ORDERED: NA CHLORIDE 0.9% 1,000 ML ONE (23:56)
[2022-05-20] MEDS ORDERED: ASPIRIN EC 81 MG TAB PO ONE (23:56)
[2022-05-21 00:10] LABS: Magnesium 2.1 mg/dL (1.6-2.4); Potassium 3.5 mmol/L (3.5-5.1)
--- NOTE | 2022-05-21 00:52 | EDPHYS ---
Physician Documentation [facility] Name: Leeann Morataya Age: 21 yrs Sex: Female : 2000 Arrival Date: 05/20/2022 Time: 22:45 Bed 13 Private MD: ED Physician Ronda Eldridge HPI: 05/20 23:00 This 21 yrs old Female presents to ER via Ambulatory with complaints of Palpitations, cp Dizziness, Nausea. 23:00 The patient presents with a history of heart racing. cp Historical: - Allergies: 22:58 PENICILLINS; tw5 - Home Meds: 22:58 None [Active]; tw5 - PMHx: 22:58 None; tw5 - PSHx: 22:58 None; tw5 - Immunization history:: Flu vaccine is not up to date. It has been more than one year since last vaccine. - Social history:: Smoking status: Reported history of juuling and/or vaping. ROS: 23:05 Constitutional: Negative for body aches, chills, fever, poor PO intake. cp 23:05 Eyes: Negative for injury, pain, redness, and discharge. cp 23:05 ENT: Negative for drainage from ear(s), ear pain, sore throat, difficulty swallowing, cp difficulty handling secretions. 23:05 Cardiovascular: Positive for palpitations, Negative for chest pain, edema. 23:05 Respiratory: Negative for cough, shortness of breath, wheezing. 23:05 Abdomen/GI: Negative for abdominal pain, vomiting, diarrhea, constipation, black/tarry stool, rectal bleeding. 23:05 Back: Negative for pain at rest, pain with movement. 23:05 Neuro: Negative for altered mental status, dizziness, headache, numbness, syncope, weakness. 23:05 All other systems are negative. Exam: 23:10 ECG was reviewed by the Attending Physician. cp 23:10 Constitutional: The patient appears in no acute distress, alert, awake, cp non-diaphoretic, non-toxic, well developed, well nourished, overweight 23:10 Head/Face: Normocephalic, atraumatic. cp 23:10 Eyes: Periorbital structures: appear normal, Conjunctiva: normal, no exudate, no cp injection, Sclera: no appreciated abnormality, Lids and lashes: appear normal, bilaterally. 23:10 ENT: External ear(s): are unremarkable, Nose: is normal, Mouth: Lips: moist, Oral mucosa: pink and intact, moist, Posterior pharynx: Airway: no evidence of obstruction, patent, swelling, is not appreciated, erythema, is not appreciated, exudate, is not appreciated. 23:10 Neck: ROM/movement: is normal, is supple, without pain, no range of motions limitations.cp 23:10 Chest/axilla: Inspection: normal. 23:10 Cardiovascular: Rate: tachycardic, Rhythm: regular, Edema: is not appreciated, JVD: is not appreciated. 23:10 Respiratory: the patient does not display signs of respiratory distress, Respirations: normal, no use of accessory muscles, no retractions, labored breathing, is not present, Breath sounds: are clear throughout, no decreased breath sounds, no stridor, no wheezing. 23:10 Abdomen/GI: Inspection: abdomen appears normal, Palpation: abdomen is soft and non-tender, in all quadrants. 23:10 Back: pain, is absent, ROM is normal. 23:10 Neuro: Orientation: to person, place \T\ time. Mentation: is normal, Cerebellar function: is grossly normal, Motor: moves all fours, strength is normal, Sensation: is normal. Vital Signs: 22:55 BP 120 / 78; Pulse 106; Resp 18; Temp 98.2; Pulse Ox 100% ; Weight 86.18 kg; Height 5 tw5 ft. 4 in. (162.56 cm); Pain 0/10; 05/21 00:45 BP 106 / 63 Supine; Pulse 88; Resp 14; Pulse Ox 100% on R/A; ll3 00:45 BP 115 / 74 Sitting; Pulse 82; Resp 16; Pulse Ox 100% on R/A; ll3 00:45 BP 118 / 66 Standing; Pulse 87; Resp 17; Pulse Ox 100% on R/A; ll3 00:48 BP 110 / 63; Pulse 83; Resp 16; Pulse Ox 100% on R/A; ll3 05/20 22:55 Body Mass Index 32.61 (86.18 kg, 162.56 cm) tw5 MDM: 05/20 22:57 Patient medically screened. cp 05/21 00:52 Data reviewed: vital signs, nurses notes, lab test result(s), EKG, radiologic studies, cp plain films. 00:52 Test interpretation: by ED physician or midlevel provider: ECG, plain radiologic cp studies. 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 05/20 23:22 Order name: Basic Metabolic Panel; Complete Time: 00:14 cp 05/21 00:14 Interpretation: Normal except: CL 109; GLUC 120; CRE 0.54. cp 05/20 23:22 Order name: CBC with Diff; Complete Time: 00:14 cp 05/21 00:15 Interpretation: MCV 79.4; MCH 26.7; RDW 15.3. cp 05/20 23:22 Order name: D-Dimer; Complete Time: 00:14 cp 05/21 00:15 Interpretation: D-DIMER 338; Reviewed. cp 05/20 23:22 Order name: Magnesium; Complete Time: 00:14 cp 05/20 23:22 Order name: Troponin HS; Complete Time: 00:14 cp 05/20 23:48 Order name: Urine Dipstick-Ancillary; Complete Time: 00:14 EDMS 05/20 22:51 Order name: Urine Dipstick-Ancillary (obtain specimen); Complete Time: 23:48 cp 05/20 22:51 Order name: EKG; Complete Time: 22:52 cp 05/20 23:22 Order name: XRAY Chest (1 view) cp 05/20 23:45 Order name: US Extremity Venous W Compression Andres cp 05/20 23:48 Order name: Urine --Ancillary (enter results); Complete Time: 00:14 mw2 05/20 22:51 Order name: Urine Test (obtain specimen); Complete Time: 23:48 cp 05/20 22:51 Order name: EKG - Nurse/Tech; Complete Time: 23:08 cp 05/20 23:15 Order name: Orthostatics; Complete Time: 00:47 cp 05/20 23:22 Order name: Cardiac monitoring; Complete Time: 23:31 cp 05/20 23:22 Order name: IV Saline Lock; Complete Time: 23:41 cp 05/20 23:22 Order name: Labs collected and sent; Complete Time: 23:41 cp 05/20 23:22 Order name: O2 Per Protocol; Complete Time: 23:31 cp 05/20 23:22 Order name: O2 Sat Monitoring; Complete Time: 23:31 cp 05/21 00:36 Order name: Vital Signs; Complete Time: 00:47 cp EC/03 23:10 Rate is 110 beats/min. Rhythm is regular. ME interval is normal. QRS interval is cp normal. QT interval is normal. T waves are Inverted in lead aVR. Interpreted by me. Reviewed by me. Administered Medications: 05/21 00:00 Drug: NS 0.9% 1000 ml Route: IV; Rate: 1 bolus; Site: right antecubital; ll3 01:12 Follow up: Response: No adverse reaction; IV Status: Completed infusion; IV Intake: ll3 1000ml 00:00 Drug: Metoprolol 12.5 mg Route: PO; ll3 00:47 Follow up: Response: No adverse reaction; Cardiac rhythm changed; Cardiac rhythm ll3 changedHR decreased 00:48 Follow up: BP 110 / 63; Pulse 83 bpm; Resp 16 bpm; Pulse Ox 100% RA ll3 00:00 Drug: Aspirin Chewable Tablet 81 mg Route: PO; ll3 00:48 Follow up: Response: No adverse reaction ll3 Disposition Summary: 05/21/22 00:52 Discharge Ordered Location: Home cp Problem: new cp Symptoms: have improved cp Condition: Stable cp Diagnosis - Palpitations cp Followup: cp - With: Darwin Pablo MD - When: 2 - 3 days - Reason: Recheck today's complaints Discharge Instructions: - Discharge Summary Sheet cp - Palpitations cp - Aspirin and Your Heart cp - Ambulatory Cardiac Monitoring cp Forms: - Medication Reconciliation Form cp - Thank You Letter cp - Antibiotic Education cp - Prescription Opioid Use cp Signatures: Dispatcher [employer] EDMS Dominguez Roberts PA PA cp Wood, Tiffany tw5 Claudia Novak RN RN ll3
--- NOTE | 2022-05-21 00:52 | ER ---
Nurse's Notes [facility] Name: Leeann Morataya Age: 21 yrs Sex: Female : 2000 Arrival Date: 05/20/2022 Time: 22:45 Bed 13 Private MD: Diagnosis: Palpitations Presentation: 05/20 22:55 Chief complaint: Patient states: "I was laying down before bed and I started to feel tw5 like my heart was beating really fast. I started to get dizzy. When I stood up to get ready for bed and get some water I started to see stars in my eyes. The last time I felt like this was earlier this week when I had an energy drink at work. 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 I have not had an energy drink today.". Coronavirus screen: Vaccine status: Patient reports being unvaccinated. Ebola Screen: Patient negative for fever greater than or equal to 101.5 degrees Fahrenheit, and additional compatible Ebola Virus Disease symptoms Patient denies exposure to infectious person. Patient denies travel to an Ebola-affected area in the 21 days before illness onset. Initial Sepsis Screen: Does the patient meet any 2 criteria? HR > 90 bpm. Does the patient have a suspected source of infection? No. Patient's initial sepsis screen is negative. Risk Assessment: Do you want to hurt yourself or someone else? Patient reports no desire to harm self or others. Onset of symptoms was May 20, 2022 at 19:00. 22:55 Method Of Arrival: Ambulatory tw5 23:11 Acuity: RODRIGO 3 ll3 Triage Assessment: 22:58 General: Appears in no apparent distress. Behavior is calm, cooperative, appropriate tw5 for age. Pain: Denies pain. GI: Reports nausea. Historical: - Allergies: 22:58 PENICILLINS; tw5 - Home Meds: 22:58 None [Active]; tw5 - PMHx: 22:58 None; tw5 - PSHx: 22:58 None; tw5 - Immunization history:: Flu vaccine is not up to date. It has been more than one year since last vaccine. - Social history:: Smoking status: Reported history of juuling and/or vaping. Screenin:11 [facility] ED Fall Risk Assessment (Adult) History of falling in the last 3 months, ll3 including since admission No falls in past 3 months (0 pts) Confusion or Disorientation No (0 pts) Intoxicated or Sedated No (0 pts) Impaired Gait No (0 pts) Mobility Assist Device Used No (0 pt) Altered Elimination No (0 pt) Score/Fall Risk Level 0 - 2 = Low Risk Oriented to surroundings, Maintained a safe environment, Educated pt \\T\\ family on fall prevention, incl call for assistance when getting out of bed. Abuse screen: Denies threats or abuse. Denies injuries from another. Nutritional screening: No deficits noted. Tuberculosis screening: No symptoms or risk factors identified. Assessment: 23:10 General: Appears uncomfortable, Behavior is calm, cooperative. Pain: Denies pain. ll3 Neuro: Level of Consciousness is awake, alert, obeys commands, Oriented to person, place, time, situation. 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 GI: Abdomen is round non-distended, Reports nausea. Derm: Skin is pink, warm \\T\\ dry. 23:58 Reassessment: Patient and/or family updated on plan of care and expected duration. Pain ll3 level reassessed. Patient is alert, oriented x 3, equal unlabored respirations, skin warm/dry/pink. Pt c/o dizziness, NELIA Gore notified. 05/21 00:48 Reassessment: Patient and/or family updated on plan of care and expected duration. Pain ll3 level reassessed. Patient is alert, oriented x 3, equal unlabored respirations, skin warm/dry/pink. Patient states symptoms have improved. Vital Signs: 05/20 22:55 BP 120 / 78; Pulse 106; Resp 18; Temp 98.2; Pulse Ox 100% ; Weight 86.18 kg; Height 5 tw5 ft. 4 in. (162.56 cm); Pain 0/10; 05/21 00:45 BP 106 / 63 Supine; Pulse 88; Resp 14; Pulse Ox 100% on R/A; ll3 00:45 BP 115 / 74 Sitting; Pulse 82; Resp 16; Pulse Ox 100% on R/A; ll3 00:45 BP 118 / 66 Standing; Pulse 87; Resp 17; Pulse Ox 100% on R/A; ll3 00:48 BP 110 / 63; Pulse 83; Resp 16; Pulse Ox 100% on R/A; ll3 05/20 22:55 Body Mass Index 32.61 (86.18 kg, 162.56 cm) tw5 ED Course: 05/20 22:45 Patient arrived in ED. ja2 22:50 Dominguez Roberts PA is PHCP. cp 22:50 Ronda Eldridge MD is Attending Physician. cp 22:58 Arm band placed on. tw5 23:11 Triage completed. ll3 23:11 Patient has correct armband on for positive identification. Placed in gown. Bed in low ll3 position. Call light in reach. Side rails up X 1. 23:41 Initial lab(s) drawn, by me, sent to lab. Inserted saline lock: 22 gauge in right ll3 antecubital area, using aseptic technique. Blood collected. 23:50 XRAY Chest (1 view) In Process Unspecified. EDMS 05/21 00:16 US Extremity Venous W Compression Andres In Process Unspecified. EDMS 00:48 No provider procedures requiring assistance completed. ll3 00:51 Darwin Pablo MD is Referral Physician. cp 01:12 IV discontinued, intact, bleeding controlled, No redness/swelling at site. Pressure ll3 dressing applied. Administered Medications: 00:00 Drug: NS 0.9% 1000 ml Route: IV; Rate: 1 bolus; Site: right antecubital; ll3 01:12 Follow up: Response: No adverse reaction; IV Status: Completed infusion; IV Intake: ll3 1000ml 00:00 Drug: Metoprolol 12.5 mg Route: PO; ll3 00:47 Follow up: Response: No adverse reaction; Cardiac rhythm changed; Cardiac rhythm ll3 changedHR decreased 00:48 Follow up: BP 110 / 63; Pulse 83 bpm; Resp 16 bpm; Pulse Ox 100% RA ll3 00:00 Drug: Aspirin Chewable Tablet 81 mg Route: PO; ll3 00:48 Follow up: Response: No adverse reaction ll3 Medication: 00:49 VIS not applicable for this client. ll3 Intake: 01:12 IV: 1000ml; Total: 1000ml. ll3 Outcome: 00:52 Discharge ordered by . cp 01:12 Discharged to home ambulatory, with family. ll3 01:12 Condition: stable 01:12 Discharge instructions given to patient, family, Instructed on discharge instructions, follow up and referral plans. Demonstrated understanding of instructions, follow-up care. 01:12 Patient left the ED. ll3 Signatures: Dispatcher [employer] EDMS Dominguez Roberts PA PA cp Alexander, Jessica [facility] Nila Hendricks [facility] Claduia Novak RN RN ll3
[2022-05-21 01:23] VITALS: TEMP 98.2; O2SAT 100
[2022-05-21 01:36] VITALS: BP 110/63
--- NOTE | 2022-05-21 13:39 | RAD REPORT ---
EXAM DESCRIPTION: RAD - Chest Single View - 05/20/2022 11:48 pm CLINICAL HISTORY: 21 years Female PALPITATIONS TECHNIQUE: One view of the chest is compared to the prior dated 10/16/2021. FINDINGS: The lungs are clear without focal consolidation, effusion, or pneumothorax. The cardiomedi astinal silhouette and central pulmonary vasculature are normal. No acute osseous abnormalities. IMPRESSION: No acute cardiopulmonary abnormalities. Electronically signed by: Elisha Shanks MD 05/21/2022 12:14 AM JUNIOR SYSTEMS ANALYST Due to temporary technical issues with the PACS/Fluency reporting system, reports are being signed by the in house radiologists without review as a courtesy to insure prompt reporting. The interpreting radiologist is fully responsible for the content of the report.
--- NOTE | 2022-05-21 13:48 | RAD REPORT ---
EXAM DESCRIPTION: US - Extrem Venous W Compress Andres - 05/21/2022 6:35 am CLINICAL HISTORY: The patient is 21 years old and is Female; PAIN TECHNIQUE: Real-time duplex ultrasound scan of the bilateral lower extremity veins integrating B-mod e two-dimensional vascular structure, Doppler spectral analysis, color flow Doppler imaging and compr ession. COMPARISON: No relevant prior studies available. FINDINGS: RIGHT DEEP VEINS: Unremarkable. No DVT in the right common femoral, femoral, proximal deep femoral or popliteal veins. The veins demonstrate normal color flow, are normally compressibl e, with normal phasic flow and/or augmentation response. RIGHT SUPERFICIAL VEINS: Unremarkable. No thrombus in the visualized right great saphenous vein. LEFT DEEP VEINS: Unremarkable. No DVT in the left common femoral, femoral, proximal deep femoral or popliteal veins. The veins demonstrate normal color flow, are normally compressible, with nabeel l phasic flow and/or augmentation response. LEFT SUPERFICIAL VEINS: Unremarkable. No thrombus in the visualized left great saphenous vein. SOFT TISSUES: No acute findings. IMPRESSION: Normal bilateral lower extremity duplex venous ultrasound. Electronically signed by: Helder Packer MD 05/21/2022 12:37 AM TOP SCREW Due to temporary technical issues with the PACS/Fluency reporting system, reports are being signed by the in house radiologists without review as a courtesy to insure prompt reporting. The interpreting radiologist is fully responsible for the content of the report.
--- NOTE | 2022-05-21 16:02 | EKG ---
Test Date: 2022-05-20 Test Time: 23:05:03 Sharepoint Application Developer: ARNOLDO MEASUREMENT RESULTS: Intervals: Rate: 110 [place]: 128 QRSD: 98 QT: 334 QTc: 452 [place]: P: 55 AZ: 128 QRS: 1 T: 55 INTERPRETIVE STATEMENTS: Sinus tachycardia Otherwise normal ECG Compared to ECG 10/18/2016 02:28:41 No significant changes Electronically Signed On 05-21-22 16:01:11 SHRIMP HEADER by Darwin Pablo
== END 2022-05-21 01:12 | disposition home or self-care (01) ==
LOC: ER 22:38
DX: R00.2 Palpitations (principal); Z88.0 Allergy status to penicillin
CPT/HCPCS: 93005; 85025; 80048; 36415; 83735; 81025; 85379; 81003; 84484; 71045; 93970; 96360; 99284; J7030